=== PATIENT | male | born 1950 | race Caucasian/White ===

== ENCOUNTER 2019-04-04 00:13 | Day surgery (SDC) | payer MEDICARE, SELFPAY ==
[2019-03-26 09:29] VITALS: BMI 34.8
[2019-04-04] VITALS (9 sets, daily range): BP systolic 109–148; BP diastolic 63–78; PULSE 64–73; RESP 11–18; TEMP 36.3–36.4; O2SAT 92–96
--- NOTE | 2019-04-04 08:45 | WPDHPUPDATE1 ---
History and Physical Update Update Date/Time: 04/04/19 08:45 History and Physical has been reviewed, including an updated exam of the patient. There are NO changes in the patient's condition. Risks, benefits, and alternatives have been discussed and questions answered. Patient agrees to proceed with procedure.
[2019-04-04] MEDS: LACTATED RINGERS 1,000 ML 30 ML IV CONT ×2 (09:15→13:04)
[2019-04-04 09:27] LABS: Glucose Point of Care 127 (65-105)
--- NOTE | 2019-04-04 09:27 | WPDANESEPPF ---
Anes - Initial Pre Proc Eval Procedure: Operation Date: 04/04/19 10:30 Proposed Procedures p Left Arthroscopic Rotator Cuff Repair, Subacromial Decompression, Possible Biceps Tenodesis Arthroscopic vs Open(Left) - Fan Freeman MD Date/Time: 04/04/19 09:27 Surgeon: Fan Freeman MD Pre Op Diagnosis: Left Shoulder Rotator Cuff Tear Patient Data Age: 68 Gender: M Height: 5 ft 11 in Weight: 113.4 kg Last Vital Signs Temp 36.4 C L 04/04/19 08:30 Pulse 64 04/04/19 08:30 Resp 18 04/04/19 08:30 BP 135/67 04/04/19 08:30 Pulse Ox 96 04/04/19 08:30 Allergies Allergy/AdvReac Type Severity Reaction Status Date / Time poison yang extract Allergy Unknown Itching Verified 03/26/19 09:18 Ayjhihw-Hhj-Shs Reductase Allergy Unknown muscle Verified 03/26/19 09:18 Inhibitor aches Home Medications Medication Instructions Recorded Confirmed Type aspirin 81 mg tablet,delayed 81 mg PO DAILY 12/16/18 03/27/19 History release ezetimibe 10 mg tablet 10 mg PO DAILY 12/16/18 03/27/19 History hydrochlorothiazide 25 mg tablet 25 mg PO DAILY 12/16/18 03/27/19 History magnesium oxide 400 mg PO DAILY 12/16/18 03/27/19 History metformin 1,000 mg tablet 1,000 mg PO BID 12/16/18 03/27/19 History multivitamin 1 tablet PO DAILY 12/16/18 03/27/19 History pramipexole 0.25 mg tablet 0.25 mg PO HS 12/16/18 03/27/19 History carvedilol 25 mg tablet 25 mg PO Q12H #180 tablet 12/25/18 03/27/19 Rx losartan 50 mg tablet 100 mg PO DAILY #180 tablet 02/24/19 03/27/19 Rx gabapentin 600 mg tablet 600 mg PO TID #90 tablet 03/17/19 03/27/19 Rx clonazepam 1 mg PO HS 03/26/19 03/27/19 History adqipfas-holgn-qbgwq-CF borate 1 tablet PO BID 03/26/19 03/27/19 History [Move Free Joint Health] ibuprofen 600 mg PO TID PRN 03/26/19 03/27/19 History inulin [Fiber Gummies] 2 g PO DAILY 03/26/19 03/27/19 History omega 5-fky-owb-fish oil [Fish Oil] 1 cap PO QID 03/26/19 03/27/19 History trazodone 200 mg PO HS 03/26/19 03/27/19 History Laboratory Tests 04/04/19 09:19 POC Capillary Glucose 127 mg/dl H mg/dl (65-105) Patient hx anesthesia problems: none Family hx anesthesia problems: none PMFSH Past Medical History Medical History Degenerative tear of glenoid labrum of left shoulder Elevated glucose Hyperlipidemia Hypertension Partial tear of left rotator cuff PTSD (post-traumatic stress disorder) Surgical History Surgical History History of hernia surgery History of left knee surgery History of throat surgery Family History Family History Mother Hypertension Family history of malignant neoplasm Family history of malignant neoplasm of breast in first degree relative Father Family history of heart disease in male family member before age 55 Family history of cardiovascular disease Social History Social History Smoking status: Never smoker Second hand tobacco smoke exposure: No Alcohol intake: never Gender identity (if verbalized by the patient): Male Anes - Eval Final PreProcedure Day of Procedure 04/04/19 09:27 Patient weight: obese Heart: regular rate and rhythm Lungs: clear to auscultation Airway: Mallampati scale class II Neurological: alert and oriented Last oral intake: >/= 8 hours ASA classification: III Emergent: no Anesthetic plan: proceed Anesthesia type and monitoring: general LMA and standard monitoring Informed Consent: The patient's anesthetic plan and its attendant risks and benefits were discussed with the patient/family/POA. Questions were solicited and answers provided to the satisfaction of the patient/family/POA.
--- NOTE | 2019-04-04 09:46 | SUR.PREOP ---
Pt signed refusal for removal of wedding band, left hand He understands the risks and aware we can cut if off; Pt refused
--- NOTE | 2019-04-04 10:07 | WPDANESPNB ---
Anes - Peripheral Nerve Block Date/Time: 04/04/19 10:07 I have discussed with the patient/family/POA the placement of a peripheral nerve block for post-operative pain management, including associated risks, benefits, complications, and side effects. Alternative methods of post-operative analgesia were detailed. Questions were solicited and answers provided to the satisfaction of the patient/family/POA. Time-Out: A pre-procedural Time-Out was completed immediately before starting the procedure and confirmed: Patient Identification, Site, Procedure, Patient Position and the Availability of Requisite Equipment. Clinical Indications: Acute post-operative pain management requested by the operative surgeon. Nerve Block Insertion Note Anes-nerve block: interscalene left Patient position: supine Skin prep: chlorhexidine Needle: 22 gauge, stimulating, insulated echogenic needle. Needle length: 50 mm Technique: ultrasound Injectate: bupivacaine 0.5% with epi 5 mcg/ml (30 cc) and dexamethasone (mg) (8 mg) Observations: tolerated well Complications: none Procedure start time:: 954 Procedure end time:: 1001
[2019-04-04] MEDS: ceFAZolin 2 GM/D5W 50 ML 2 GM/50 ML BAG IVPB (10:33)
[2019-04-04 13:15] LABS: Glucose Point of Care 136 (65-105)
--- NOTE | 2019-04-04 17:10 | P.OP_ITS ---
Procedure Note - Detailed Date of procedure: 04/04/19 Pre-op diagnosis: Left Shoulder Rotator Cuff Tear Post-op diagnosis: other (1. Rotator cuff tear. 2. Degenerative SLAP tear 3. Biceps tendinosis) Procedure performed: 1. Arthrosocopic rotator cuff repair. 2. Arthroscopic biceps tenodesis. 3. Arthroscopic subacromial decompression. Description of procedure: High-grade partial articular side tear. The tear was completed to a medium-size tear. Two tunnel technique was used with the ArthroTunneler. A 3rd tunnel was used to tenodese the biceps tendon which had some tendinopathy, as well as slap tear and posterior labral tear which was debrided. Minimal degenerative changes at the articular cartilage. Anesthesia: GETA Surgeon: Fan Freeman MD Estimated blood loss (mL): 50 Complications: None Disposition: PACU Findings: Operative detail: Preoperative antibiotics were given. An interscalene block was administered in the preoperative area. The patient was bought brought to the operating room. A general anesthetic was administered. The patient was carefully positioned in the beach chair position. The head and neck were carefully positioned. The non operative extremity was also carefully positioned. The shoulder was prepped and draped in the usual sterile fashion. Examination was performed. No significant stiffness or abnormal findings were identified. Standard posterior and anterior arthroscopic portals were established. Inflow achieved with the arthroscopic pump using saline and epinephrine. The glenohumeral joint was carefully inspected. The articular supraspinatus was significantly frayed with high- grade partial-thickness tearing greater than 50%. This was debrided. The subscapularis was intact. The articular cartilage showed only minimal degenerative change. The posterior labrum was debrided as it was quite degenerative. There was a slap tear which was also debrided and a biceps tenotomy performed. The biceps was later tenodesed at the subacromial space. It was found to have moderate hyperemia and tendinosis. Attention was turned to the subacromial space. A complete bursectomy was performed. The rotator cuff and footprint were lightly debrided. A modest acromioplasty was performed. The tear configuration was carefully assessed. The tear was essentially crescentic after debridement. No significant retraction. At this point, 2 tunnels were created at the rotator cuff. One anterior and 1 posterior. The ArthroTunneler technique was utilized. Three sutures were passed through each tunnel. All sutures were then passed through the cuff tissue. The rip stop configuration was performed. The sutures were tied arthroscopically. The biceps tenodesis was performed through a 3rd tunnel. Two sutures were passed multiple times, and locking stitches used. The proximal stump of the biceps was excised. The arthroscopic instruments were removed. The wounds were closed with 3-0 Monocryl subcuticular suture and steri strips. There were no complications. A sling was applied and the patient brought to the recovery room.
== END 2019-04-04 15:33 | disposition home or self-care (01) ==
PROVIDERS: PCP Internal Medicine; Visit Provider Orthopaedic Surgery
PROC: (CPT 29805; principal; 2019-04-04 10:30)
DX: M75.102 Unspecified rotator cuff tear or rupture of left shoulder, not specified as traumatic (principal); M75.82 Other shoulder lesions, left shoulder; M75.22 Bicipital tendinitis, left shoulder; I10 Essential (primary) hypertension; E78.5 Hyperlipidemia, unspecified; R73.9 Hyperglycemia, unspecified; F43.10 Post-traumatic stress disorder, unspecified; Z79.82 Long term (current) use of aspirin; Z79.84 Long term (current) use of oral hypoglycemic drugs; E66.9 Obesity, unspecified; Z68.34 Body mass index [BMI] 34.0-34.9, adult
CPT/HCPCS: 29827; 29828; 29826; A4565; J0131; J0330; J0690; J1100; J2250; J2370; J2405; J2704; J3010; J7120

== ENCOUNTER 2019-04-08 22:21 | Emergency (ER) | payer MEDICARE, OTHER, SELFPAY ==
--- NOTE | ~2019-04-08 | XR_ITS ---
EXAMINATION: XR foot RT min 3V DATE: 04/08/2019 23:01 INDICATION: Pain at the base of the fifth metatarsal TECHNIQUE: Dorsoplantar, two oblique and lateral views of the right foot were obtained. COMPARISON: None. FINDINGS: Alignment is normal. No fracture. Joint spaces are relatively preserved. No cortical erosions or elier osteal reaction. Small plantar calcaneal spur. Soft tissues are unremarkable. IMPRESSION: 1. Small plantar calcaneal spur. Otherwise unremarkable right foot radiographs. Reviewed, dictated and finalized at location A. [facility] JOINER
[2019-04-08 22:30] VITALS: BP 128/63; PULSE 68; RESP 18; TEMP 36.6; O2SAT 95
--- NOTE | 2019-04-08 22:47 | ED.LOWEXIN ---
HPI - Extremity Injury (Lower) General Chief Complaint: Extremity Injury, Lower Stated Complaint: R FOOT PAIN Time Seen by Provider: 04/08/19 22:43 Source: patient and RN notes reviewed Mode of arrival: other Limitations: no limitations History of Present Illness HPI Narrative: Pt is a 68 y/o male who presents to the ED with c/o right foot pain that began this morning. Pt's spouse states the pt has been sitting in the recliner since his left rotator cuff surgery. Pt has been taking Oxycodone-Acetaminophen for his shoulder surgery. He states that the medication does not relieve the pain in his foot. Pt denies numbness and tingling. complaint: other (foot pain) Onset (ago): hour(s) Relieving factors: nothing Associated symptoms: other (none) Other symptoms: none Related Data Home Medications Medication Instructions Recorded Confirmed aspirin 81 mg tablet,delayed 81 mg PO DAILY 12/16/18 03/27/19 release ezetimibe 10 mg tablet 10 mg PO DAILY 12/16/18 03/27/19 hydrochlorothiazide 25 mg tablet 25 mg PO DAILY 12/16/18 03/27/19 magnesium oxide 400 mg PO DAILY 12/16/18 03/27/19 metformin 1,000 mg tablet 1,000 mg PO BID 12/16/18 03/27/19 multivitamin 1 tablet PO DAILY 12/16/18 03/27/19 pramipexole 0.25 mg tablet 0.25 mg PO HS 12/16/18 03/27/19 Fiber Gummies 2 g PO DAILY 03/26/19 03/27/19 Move Free Joint Health 1 tablet PO BID 03/26/19 03/27/19 clonazepam 1 mg PO HS 03/26/19 03/27/19 ibuprofen 600 mg PO TID PRN 03/26/19 03/27/19 omega 4-gpi-maw-fish oil [Fish Oil] 1 cap PO QID 03/26/19 03/27/19 trazodone 200 mg PO HS 03/26/19 03/27/19 Allergies Allergy/AdvReac Type Severity Reaction Status Date / Time poison yang extract Allergy Unknown Itching Verified 04/08/19 23:07 Rnmmkrd-Oak-Pyh Reductase AdvReac Unknown muscle Verified 04/08/19 23:07 Inhibitor aches Review of Systems Review of Systems: All systems reviewed & are unremarkable except as noted in HPI and below Musculoskeletal: Musculoskeletal: Reports other (right foot pain) Neurologic: Denies numbness and Denies tingling PMFSH Past Medical History Medical History (Updated 04/09/19 @ 00:50 by Solo Jiménez MD) Anxiety Degenerative tear of glenoid labrum of left shoulder Depression DVT (deep venous thrombosis) Elevated glucose GERD (gastroesophageal reflux disease) History of angina Hyperlipidemia Hypertension On detention drug therapy VANDANA on CPAP Partial tear of left rotator cuff Pneumonia PTSD (post-traumatic stress disorder) Type 2 diabetes mellitus without complication, with detention current use of insulin pump Surgical History Surgical History (Updated 04/08/19 @ 23:06 by Briana Ross) History of hernia surgery History of left knee surgery History of shoulder surgery left rotator cuff repair History of throat surgery Hx of tonsillectomy S/P UPPP (uvulopalatopharyngoplasty) Social History Social History Smoking status: Never smoker Second hand tobacco smoke exposure: No Alcohol intake: never Gender identity (if verbalized by the patient): Male Exam Const: General: healthy appearing, no acute distress and well developed Nutritional Appearance: well nourished Orientation/consciousness: patient oriented x3 (alert) and Other orientation findings (Alert) Limitations: no limitations HENMT: Head: normocephalic and atraumatic Ears: external ears normal General nose exam: No nasal discharge present and no epistaxis Face and sinus: face symmetric Mouth: Yes lip normal, Yes tongue normal and Yes moist mucous membranes Throat: other (No exudate, no erythema) Eyes: Conjunctivae: conjunctivae normal Sclera: sclerae normal EOM: EOMs intact bilaterally Neck: Neck: full ROM, no lymphadenopathy and supple Thyroid: thyroid normal Resp: Effort & Inspection: normal respiratory effort Cardio: Peripheral pulses: dorsalis pedis present on the right 2+ Skin: General skin exam: nor
[2019-04-08 23:26] LABS: Uric Acid 5.7 mg/dL (3.5-8.5)
[2019-04-09 01:09] VITALS: BP 138/78; PULSE 70; RESP 16; O2SAT 96
== END 2019-04-09 01:14 | disposition home or self-care (01) ==
PROVIDERS: Emergency Provider Emergency Medicine; PCP Internal Medicine
DX: M77.51 Other enthesopathy of right foot and ankle (principal); E11.9 Type 2 diabetes mellitus without complications; I10 Essential (primary) hypertension; F32.9 Major depressive disorder, single episode, unspecified; F41.9 Anxiety disorder, unspecified; Z79.82 Long term (current) use of aspirin; Z86.718 Personal history of other venous thrombosis and embolism; Z79.84 Long term (current) use of oral hypoglycemic drugs
CPT/HCPCS: 36415; 73630; 84550; 99283

== ENCOUNTER 2020-03-10 10:58 | Outpatient (CLI) | payer MEDICARE, SELFPAY ==
--- NOTE | ~2020-03-10 | XR_ITS ---
EXAMINATION: XR chest 2V DATE: 03/10/2020 11:16 INDICATION: Generalized hyperhidrosis TECHNIQUE: PA and lateral views of the chest were obtained. COMPARISON: Chest radiograph and CT dated 11/24/2018 FINDINGS: Heart size is normal with small bilateral paracardial fat pads. Unchanged minimal lingular discoid at electasis/scarring at the costophrenic angle. No new airspace opacities, pulmonary edema, pleural eff usion or pneumothorax. There are bridging osteophytes at multiple levels in the spine, consistent wit h diffuse idiopathic skeletal hyperostosis (DISH). IMPRESSION: 1. Chronic mild lingular atelectasis/scarring. No acute cardiopulmonary disease. Reviewed, dictated and finalized at location B. [place] [employer] SAL[employer] REPRESENTATIVE IMPRESSION: 1. Chronic mild lingular atelectasis/scarring. No acute cardiopulmonary disease .
== END 2020-03-10 10:59 | disposition home or self-care (01) ==
PROVIDERS: PCP Internal Medicine; Visit Provider Internal Medicine
DX: R61 Generalized hyperhidrosis (principal)
CPT/HCPCS: 71046

== ENCOUNTER 2020-12-14 08:13 | Outpatient (CLI) | payer MEDICARE, SELFPAY ==
--- NOTE | ~2020-12-14 | XR_ITS ---
EXAMINATION: XR barium swallow EXAM DATE: 12/14/2020 09:04 INDICATION: R13.10 -Dysphagia, solid food getting stuck episodes. TECHNIQUE: Standard thick followed by thin contrast barium esophagram examination was performed by Dr Nova Cuellar, radiologist. Pulsed dose reduction fluoroscopy was used with fluoroscopic time of 0.9 minutes. The DAP for this procedure was 2.4 Gycm2. A total of 159 images obtained for the exam. T here is no prior study for comparison. FINDINGS: When patient was placed in the laying CAMPBELL position, very thin weblike density was present a t mid cervical esophagus anteriorly (sequence 10 images 7 and 8). This appears to project about 4 mm into the lumen of the esophagus at time of maximal distention, causing only mild narrowing. A small g astroesophageal hiatal hernia was also demonstrated in this laying position. These findings were not demonstrated on the other sequences obtained in the standing position. No esophageal diverticulum or mass identified. I discussed the small hiatal hernia with the patient at the conclusion of examination. I identified t he upper cervical findings after the examination during this dictation. I did instruct patient that t aking small bites may prevent future problems of solid food getting stuck. IMPRESSION: 1. Thin mid cervical anterior bandlike narrowing could be small upper cervical web causing mild narr owing. 2. Small sliding gastroesophageal hiatal hernia. Reviewed, dictated and finalized at location A. IMPRESSION: 1. Thin mid cervical anterior bandlike narrowing could be small upper cervical web causing mild narrowing. 2. Small sliding gastroesophageal hiatal hernia.
== END 2020-12-14 08:14 | disposition home or self-care (01) ==
LOC: ANHIMG 08:17
PROVIDERS: PCP Internal Medicine; Visit Provider Internal Medicine
DX: R13.10 Dysphagia, unspecified (principal); K44.9 Diaphragmatic hernia without obstruction or gangrene
CPT/HCPCS: 74220

== ENCOUNTER 2021-02-23 00:54 | Day surgery (SDC) | payer MEDICARE, SELFPAY ==
[2021-02-16 12:50] VITALS: BMI 34.2
--- NOTE | 2021-02-21 12:04 | PM.HPGS ---
History of Present Illness History of Present Illness Consent: Risks, benefits, and alternatives have been discussed and questions answered. Patient agrees to proceed with procedure. Chief complaint: dysphagia Narrative: Declan Martinez is a 70 year old male who has had difficulty swallowing for about 2 years. Every couple of months he will have food or even liquids get caught just below his throat. He will need to leave the table and sometimes hack it back up. If something like a solid piece of food feels stuck drinking does not help as the liquid simply sits there or shoots back out. He occasionally gets acid reflux with bitter regurgitation. This is not just at night and in fact it rarely happens at night. He seldom has true heartburn and is not on any medications for that. There is no family history of esophageal diseases such as Rooney's esophagus recent upper GI barium swallow shows a thin mid cervical anterior bandlike narrowing which may be a cervical web causing mild narrowing. He states that sometimes even while drinking a glass of milk he will feel it stop Just below his neck. Review of Systems Review of Systems: All systems reviewed & are unremarkable except as noted in HPI and below PMFSH Past Medical History Medical History Actinic keratosis Anxiety Anxiety with depression Benign essential hypertension BMI 33.0-33.9,adult BMI 34.0-34.9,adult BMI 35.0-35.9,adult Degenerative tear of glenoid labrum of left shoulder Depression DJD (degenerative joint disease), multiple sites DVT (deep venous thrombosis) Dysphagia Elevated glucose Encounter for Medicare annual wellness exam Encounter for routine adult health examination with abnormal findings Encounter for routine adult health examination without abnormal findings Encounter for special screening examination for neoplasm of prostate Esophagus disorder Folliculitis Follow up GERD (gastroesophageal reflux disease) Hearing loss History of angina Hx of deep venous thrombosis Hypomagnesemia Hypotension Insomnia Light headedness Night sweats On lobsterman drug therapy Orthostatic hypotension VANDANA on CPAP VANDANA on CPAP Partial tear of left rotator cuff Peripheral neuropathy Pneumonia PTSD (post-traumatic stress disorder) RLS (restless legs syndrome) Statin intolerance Vision changes Surgical History Surgical History History of hernia surgery History of left knee surgery History of shoulder surgery left rotator cuff repair History of throat surgery Hx of tonsillectomy S/P UPPP (uvulopalatopharyngoplasty) Family History Family History Mother Hypertension Family history of malignant neoplasm Family history of malignant neoplasm of breast in first degree relative Father Family history of heart disease in male family member before age 55 Family history of cardiovascular disease Social History Social History Smoking status: Never smoker Second hand tobacco smoke exposure: No Alcohol intake: never Substance use: never Substance use type: does not use Living arrangements: with family Gender identity (if verbalized by the patient): Male Spiritual care concerns: No Meds Home Medications and Allergies Home Medications Medication Instructions Recorded Confirmed Type aspirin 81 mg tablet,delayed 81 mg PO DAILY 12/16/18 02/23/21 History release magnesium oxide 400 mg PO DAILY 12/16/18 02/23/21 History multivitamin 1 tablet PO DAILY 12/16/18 02/23/21 History Fiber Gummies 2 g PO DAILY 03/26/19 02/23/21 History Move Free Joint Health 1 tablet PO BID 03/26/19 02/23/21 History omega 4-ifa-uzp-fish oil [Fish Oil] 1 cap PO QID 03/26/19 02/23/21 History ibuprofen 600 mg tablet See Rx Instructions .ROUTE 11/15/20 02/23/21 Rx .COM
[2021-02-23 07:27] VITALS: BP 159/90; PULSE 64; RESP 18; TEMP 36.1; O2SAT 95
[2021-02-23] MEDS: LACTATED RINGERS 1,000 ML 150 ML IV CONT (07:43)
[2021-02-23 07:44] LABS: Glucose Point of Care 114 mg/dl (65-105)
--- NOTE | 2021-02-23 07:48 | WPDANESEPPF ---
Anes - Initial Pre Proc Eval Procedure: Operation Date: 02/23/21 08:30 Proposed Procedures p Esophagogastroduodenoscopy - Jaron Abdullahi MD Date/Time: 02/23/21 07:48 Surgeon: Jaron Abdullahi MD Pre Op Diagnosis: dysphagia Patient Data Age: 70 Gender: M Height: 1.8 m Weight: 109.1 kg Last Vital Signs Temp 36.1 C L 02/23/21 07:27 Pulse 64 02/23/21 07:27 Resp 18 02/23/21 07:27 BP 159/90 H 02/23/21 07:27 Pulse Ox 95 02/23/21 07:27 Allergies Allergy/AdvReac Type Severity Reaction Status Date / Time poison yang extract Allergy Unknown Itching Verified 02/23/21 07:26 Jjuzocv-CSL-RiL Reductase AdvReac Unknown muscle Verified 02/23/21 07:26 Inhibitor aches [Ibhdjdw-Vsb-Bgi Reductase Inhibitor] Home Medications Medication Instructions Recorded Confirmed Type aspirin 81 mg tablet,delayed 81 mg PO DAILY 12/16/18 02/23/21 History release magnesium oxide 400 mg PO DAILY 12/16/18 02/23/21 History multivitamin 1 tablet PO DAILY 12/16/18 02/23/21 History Fiber Gummies 2 g PO DAILY 03/26/19 02/23/21 History Move Free Joint Health 1 tablet PO BID 03/26/19 02/23/21 History omega 6-cum-gzo-fish oil [Fish Oil] 1 cap PO QID 03/26/19 02/23/21 History ibuprofen 600 mg tablet See Rx Instructions .ROUTE 11/15/20 02/23/21 Rx .COMPLEX #270 tablet carvedilol 25 mg tablet See Rx Instructions .ROUTE 12/02/20 02/23/21 Rx .COMPLEX #180 tablet ezetimibe 10 mg tablet See Rx Instructions .ROUTE 01/03/21 02/23/21 Rx .COMPLEX #90 tablet trazodone 100 mg tablet See Rx Instructions .ROUTE 01/10/21 02/23/21 Rx .COMPLEX #180 tablet metformin 1,000 mg tablet See Rx Instructions .ROUTE 01/27/21 02/23/21 Rx .COMPLEX #180 tablet gabapentin 600 mg tablet See Rx Instructions .ROUTE 02/01/21 02/23/21 Rx .COMPLEX #150 tablet clonazepam 1 mg tablet 1 mg PO QHS 90 Days #90 tablet 02/09/21 02/23/21 Rx losartan 100 mg PO DAILY 02/16/21 02/23/21 History Laboratory Tests 02/23/21 07:39 POC Capillary Glucose 114 mg/dl H mg/dl (65-105) Patient hx anesthesia problems: none Family hx anesthesia problems: none Results Review: All pre-operative results and documents have been reviewed as part of the pre-operative evaluation. [facility] Past Medical History Medical History Actinic keratosis Anxiety Anxiety with depression Benign essential hypertension BMI 33.0-33.9,adult BMI 34.0-34.9,adult BMI 35.0-35.9,adult Degenerative tear of glenoid labrum of left shoulder Depression DJD (degenerative joint disease), multiple sites DVT (deep venous thrombosis) Dysphagia Elevated glucose Encounter for Medicare annual wellness exam Encounter for routine adult health examination with abnormal findings Encounter for routine adult health examination without abnormal findings Encounter for special screening examination for neoplasm of prostate Esophagus disorder Folliculitis Follow up GERD (gastroesophageal reflux disease) Hearing loss History of angina Hx of deep venous thrombosis Hypomagnesemia Hypotension Insomnia Light headedness Night sweats On alf drug therapy Orthostatic hypotension VANDANA on CPAP VANDANA on CPAP Partial tear of left rotator cuff Peripheral neuropathy Pneumonia PTSD (post-traumatic stress disorder) RLS (restless legs syndrome) Statin intolerance Vision changes Surgical History Surgical History History of hernia surgery History of left knee surgery History of shoulder surgery left rotator cuff repair History of throat surgery Hx of tonsillectomy S/P UPPP (uvulopalatopharyngoplasty) Family History Family History Mother Hypertension Family history of malignant neoplasm Family history of malignant neoplasm of breast in first degree relative Father Family history of heart disease in male family member
[2021-02-23 08:33] VITALS: BP 131/73; PULSE 55; RESP 15; O2SAT 93
[2021-02-23 08:43] VITALS: BP 131/73; PULSE 56; RESP 16; O2SAT 95
[2021-02-23 08:53] VITALS: BP 150/91; PULSE 57; RESP 16; O2SAT 96
== END 2021-02-23 09:09 | disposition home or self-care (01) ==
PROVIDERS: PCP Internal Medicine; Visit Provider Internal Medicine Gastroenterology
PROC: 0DJ08ZZ Inspection of Upper Intestinal Tract, Via Natural or Artificial Opening Endoscopic (ICD-10-PCS; CPT 43235; principal; 2021-02-23 08:30)
DX: R13.10 Dysphagia, unspecified (principal); K29.50 Unspecified chronic gastritis without bleeding; K21.9 Gastro-esophageal reflux disease without esophagitis; I10 Essential (primary) hypertension; F41.8 Other specified anxiety disorders; G47.33 Obstructive sleep apnea (adult) (pediatric); G25.81 Restless legs syndrome; F43.10 Post-traumatic stress disorder, unspecified; Z86.718 Personal history of other venous thrombosis and embolism; Z79.84 Long term (current) use of oral hypoglycemic drugs; Z79.82 Long term (current) use of aspirin; E66.9 Obesity, unspecified; Z68.33 Body mass index [BMI] 33.0-33.9, adult
CPT/HCPCS: 43239; 43450; 82948; 87081; 88305; J2704; J7120

== ENCOUNTER → 2021-04-27 14:14 | Outpatient (CLI) | payer MEDICARE, SELFPAY ==
--- NOTE | ~2021-04-27 | XR_ITS ---
XR abdomen/kub 1V 04/27/2021 14:37 INDICATION: Right-sided abdominal pain TECHNIQUE: KUB COMPARISON: None FINDINGS: Bowel gas pattern is normal. There is no evidence of free air, mass, organomegaly, ascites or obstruction. No abnormal calculi are seen. The bones appear intact. IMPRESSION: 1: No acute abdominal abnormality identified. Reviewed, dictated and finalized at location B.
== END ==
PROVIDERS: PCP Internal Medicine; Visit Provider Internal Medicine
DX: R10.84 Generalized abdominal pain (principal)
CPT/HCPCS: 74018

== ENCOUNTER 2021-04-27 16:22 | Outpatient (CLI) | payer MEDICARE, SELFPAY ==
--- NOTE | ~2021-04-27 | CT_ITS ---
EXAMINATION: CT abdomen pelvis w con DATE: 04/27/2021 17:14 INDICATION: Unspecified abdominal pain TECHNIQUE: Computed tomography (CT) of the abdomen and pelvis was performed with 100 CC Omnipaque 350 intravenous contrast. Automated exposure control and iterative reconstruction technique were employe d. Exam dose: 1200.83 mGy-cm total exam DLP. COMPARISON: 04/27/2021 KUB FINDINGS: Minimal bilateral lower lobe dependent atelectasis. No consolidation or mass lesion of the included lower lung zones. Normal heart size. No pericardial or pleural effusion. There is hepatic steatosis. Scattered hepatic and splenic calcified granulomas consistent with old gr anulomatous disease. No hepatic, splenic, pancreatic or adrenal space-occupying mass lesion. No pancr eatic calcification. The gallbladder is present. No bile duct or pancreatic duct dilatation. 9 mm and 23 mm left renal probable cysts, the larger cyst diminished in size from 4 cm reported on . No urinary tract calculus or hydroureteronephrosis. The urinary bladder and prostate gland are unrema rkable. There are multiple diverticula of the sigmoid colon and minimal diverticulosis of the remainder of th e colon. Compared to the prior examination there is mild proximal sigmoid pericolic fat stranding sug gesting mild proximal sigmoid diverticulitis. Normal caliber and atherosclerotic calcification of the abdominal aorta. No intraperitoneal or retrop eritoneal or pelvic mass lesion or adenopathy or ascites. Bilateral small fat-containing inguinal hernias, larger on the right. Diffuse idiopathic skeletal hyperostosis of the thoracic spine. Moderately prominent degenerative dis c disease of the lumbar and lumbosacral spine. Prominent degenerative change of the lumbar apophyseal joints. No suspicious osteolytic or osteoblastic lesions are noted. IMPRESSION: Mild proximal sigmoid diverticulitis Diverticulosis of the sigmoid colon with minimal involvement of the remainder of the colon Normal appendix Left renal cysts Hepatic steatosis Reviewed, dictated and finalized at [facility]. Reviewed, dictated and finalized at location [facility]. IMPRESSION: Mild proximal sigmoid diverticulitis Diverticulosis of the sigmoid colon with minimal involvement of the remainder o f the colon Normal appendix Left renal cysts Hepatic steatosis
[2021-04-27 17:03] LABS: Estimated Glomerular Filt Rate > 60
== END 2021-04-27 16:23 | disposition home or self-care (01) ==
LOC: ANHIMG 16:25
PROVIDERS: PCP Internal Medicine; Visit Provider Internal Medicine
DX: R10.9 Unspecified abdominal pain (principal); Z87.19 Personal history of other diseases of the digestive system; K57.92 Diverticulitis of intestine, part unspecified, without perforation or abscess without bleeding; N28.1 Cyst of kidney, acquired; K76.0 Fatty (change of) liver, not elsewhere classified
CPT/HCPCS: 74177; Q9967

== ENCOUNTER 2021-05-16 10:16 | Outpatient (CLI) | payer MEDICARE, SELFPAY ==
--- NOTE | ~2021-05-16 | CT_ITS ---
EXAMINATION: CT abdomen pelvis w con DATE: 05/16/2021 10:40 INDICATION: Diverticulitis of intestine, part unspecified. Low abdominal pain. TECHNIQUE: Computed tomography (CT) of the abdomen and pelvis was performed with 100 mL Omnipaque 350 intravenous contrast. Automated exposure control and iterative reconstruction technique were employe d. The dose-length product was 1261.60 mGy-cm. COMPARISON: CT abdomen and pelvis 04/27/2021 FINDINGS: The visualized portions of the lung bases show mild atelectasis. No pleural effusion. The h eart size is normal. No pericardial effusion. Calcifications in the liver and spleen are consistent w ith old granulomatous disease. There is fat stranding around the tail of the pancreas, consistent wit h acute interstitial pancreatitis. The adrenal glands and right kidney are normal. There are cysts in left kidney measuring up to 2.1 cm. There is a right inguinal hernia containing fat. There is divert iculosis of the colon without evidence of diverticulitis. The appendix is normal. There are no dilate d loops of bowel. There are no pathologically enlarged lymph nodes. There is no free intraperitoneal fluid. There is moderate lumbar spondylosis. IMPRESSION: 1. Acute interstitial pancreatitis. 2. No evidence of diverticulitis. Reviewed, dictated and finalized at location A.
== END 2021-05-16 10:17 | disposition home or self-care (01) ==
PROVIDERS: PCP Internal Medicine; Visit Provider Internal Medicine
DX: K57.92 Diverticulitis of intestine, part unspecified, without perforation or abscess without bleeding (principal); K85.90 Acute pancreatitis without necrosis or infection, unspecified
CPT/HCPCS: 74177; Q9967

== ENCOUNTER 2021-05-16 11:05 | Inpatient (IN) | payer MEDICARE, SELFPAY ==
[2021-05-16] VITALS (8 sets, daily range): BP systolic 142–158; BP diastolic 74–92; PULSE 64–74; RESP 14–20; TEMP 36.2–36.9; O2SAT 94–100; BMI 32.8
--- NOTE | ~2021-05-16 | XR_ITS ---
EXAMINATION: XR lumbar spine 2-3V DATE: 05/20/2021 15:48 INDICATION: Left-sided low back pain TECHNIQUE: Anteroposterior and lateral views of the lumbar spine, and cone-down lateral view of the l umbosacral junction were obtained. COMPARISON: Lumbar spine radiograph dated 04/30/[address] dated 05/16/2021 FINDINGS: Unchanged mild lumbar levocurvature. Sagittal alignment is normal. Vertebral body heights are normal. Moderate left-sided predominant disc height loss at L3-L4. Mild disc height loss throughout the miguelina hussein of the lumbar spine. Moderate to severe lumbar facet osteoarthritis.Sacral arches are intact. M ild right and mild to moderate left sacroiliac osteoarthritis. Atherosclerotic abdominal aorta. Visua lized posterior lung bases are clear with no pleural effusion. IMPRESSION: 1. Moderate lumbar spondylosis. Reviewed, dictated and finalized at location B.
--- NOTE | ~2021-05-16 | XR_ITS ---
EXAMINATION: XR abdomen/kub 1V DATE: 05/18/2021 09:37 INDICATION: Left lower quadrant abdominal pain. TECHNIQUE: A supine view of the abdomen on 2 radiographs was obtained. COMPARISON: CT abdomen and pelvis 05/16/2021 FINDINGS: There are no dilated loops of bowel. There is a paucity of stool in the colon. IMPRESSION: 1. Normal bowel gas pattern. Reviewed, dictated and finalized at location A.
[2021-05-16 12:07] LABS: Basophils Absolute Auto 0.1 K/mm3 (0.0-0.1); Basophils Percent Auto 1.1 % (0.2-1.2); Eosinophils Absolute Auto 0.3 K/mm3 (0-0.3); Eosinophils Percent Auto 2.9 % (0-4.4); Hematocrit 50.6 % (42.0-52.0); Hemoglobin 16.2 g/dL (14.0-18.0); Immature Granulocyte Absolute 0.02 K/mm3 (0.00-0.031); Immature Granulocyte Percent A 0.2 % (0-0.5); Lymphocytes Absolute Auto 1.87 K/mm3 (0.9-3.2); Lymphocytes Percent Auto 20.8 % (18.3-44.2); Mean Corpuscular Hemoglobin 29.5 pg (26-34); Mean Platelet Volume 10.3 fl (7.4-10.4); Monocytes Absolute Auto 0.8 K/mm3 (0.1-0.6); Monocytes Percent Auto 8.6 % (2.6-8.5); Neutrophils Percent Auto 66.4 % (45.5-73.1); Platelet Count Result 332 k/mm3 (150-375); Red Cell Distribution Width 12.6 % (11.5-14.5)
[2021-05-16 12:18] LABS: Alanine Aminotransferase 34 U/L (4-50); Albumin Level 4.4 g/dL (3.5-5.1); Alkaline Phosphatase 90 U/L (38-126); Anion Gap 7 mmol/L (8-16); Aspartate Amino Transferase 42 U/L (17-59); Bilirubin,Total 0.3 mg/dL (0.2-1.3); Blood Urea Nitrogen 27 mg/dL (9-20); Calcium 9.5 mg/dL (8.4-10.2); Carbon Dioxide 29 mmol/L (22-30); Chloride 105 mmol/L (98-107); Estimated CRCL calculation 90 ml/min; Estimated Glomerular Filt Rate > 60; Glucose 113 mg/dL (65-110); Lipase 198 U/L (23-300); Potassium 4.5 mmol/L (3.4-5.0); Sodium 141 mmol/L (137-145)
--- NOTE | 2021-05-16 12:48 | ED.ABDPAIN ---
HPI - Abdominal Pain General Chief Complaint: Abdominal Pain Stated Complaint: pancreatitis Time Seen by Provider: 05/16/21 12:02 Source: patient Mode of arrival: ambulatory Limitations: no limitations History of Present Illness HPI narrative: This is a 71 year old male who presents for evaluation of lower abdominal pain. He has been having pain for 1 month. Approximately 3 weeks ago he was diagnosed with acute diverticulitis and he was started on antibiotics with pain medications. He states taking pain medication improved his pain but his pain has never completely resolved. He continued to have lower abdominal pain so his PCP ordered an outpatient CT scan today. His CT today shows pancreatitis with mild stranding at pancreatic tail. He denies nausea, vomiting, fever or chills. He also denies urinary complaints. He reports having normal bowel movement today. He rates pain 5/10. He denies alcohol use . Related Data Home Medications Medication Instructions Recorded Confirmed aspirin 81 mg tablet,delayed 81 mg PO DAILY 12/16/18 05/16/21 release magnesium oxide 400 mg PO DAILY 12/16/18 05/16/21 multivitamin 1 tablet PO DAILY 12/16/18 05/16/21 Fiber Gummies 2 g PO DAILY 03/26/19 05/16/21 Move Free [employer] 1 tablet PO BID 03/26/19 05/16/21 omega 4-phk-bjl-fish oil [Fish Oil] 1,200 cap PO TID 03/26/19 05/16/21 losartan 100 mg PO DAILY 02/16/21 05/16/21 carvedilol 25 mg PO BID 05/16/21 05/16/21 ezetimibe 10 mg PO DAILY 05/16/21 05/16/21 gabapentin 600 mg PO BID 05/16/21 05/16/21 ibuprofen 600 mg PO TID PRN MDD 1800 05/16/21 05/16/21 metformin 1,000 mg PO BID 05/16/21 05/16/21 trazodone 200 mg PO DAILY 05/16/21 05/16/21 Allergies Allergy/AdvReac Type Severity Reaction Status Date / Time poison yang extract Allergy Unknown Itching Verified 05/16/21 14:25 Geasvga-WRS-CuE Reductase AdvReac Unknown muscle Verified 05/16/21 14:25 Inhibitor aches [Cxpxkgf-Nml-Fng Reductase Inhibitor] Review of Systems Review of Systems: All systems reviewed & are unremarkable except as noted in HPI and below Constitutional: Constitutional: Reports chills and Denies fever(s) Cardiovascular: Cardiovascular: Denies chest pain Respiratory: Respiratory: Denies cough and Denies dyspnea Gastrointestinal: Gastrointestinal: Reports abdominal pain, Reports diarrhea, Denies nausea and Denies vomiting Genitourinary: Genitourinary: Denies hematuria and Denies oliguria Musculoskeletal: Musculoskeletal: Reports back pain [facility] Past Medical History Medical History Abdominal pain Actinic keratosis Anxiety Anxiety with depression Benign essential hypertension BMI 33.0-33.9,adult BMI 34.0-34.9,adult BMI 35.0-35.9,adult Degenerative tear of glenoid labrum of left shoulder Depression Diverticulitis DJD (degenerative joint disease), multiple sites DVT (deep venous thrombosis) Dysphagia Elevated glucose Encounter for Medicare annual wellness exam Encounter for routine adult health examination with abnormal findings Encounter for routine adult health examination without abnormal findings Encounter for special screening examination for neoplasm of prostate Esophagus disorder Folliculitis Follow up Foreskin inflammation GERD (gastroesophageal reflux disease) Hearing loss History of angina Hx of deep venous thrombosis Hypomagnesemia Hypotension Insomnia Light headedness Night sweats On penitentiary drug therapy Orthostatic hypotension VANDANA on CPAP VANDANA on CPAP Partial tear of left rotator cuff Peripheral neuropathy Pneumonia PTSD (post-traumatic stress disorder) RLS (restless legs syndrome) Statin intolerance Vision changes Vitamin D deficiency Surgical History Surgical History History of hernia surgery History of left knee surgery History of shoulder surgery left rotator cuff repair History of
[2021-05-16 13:34] LABS: Add Urine Microscopic? YES; Appearance Urine Clear (Clear); Bilirubin Urine Negative (Negative); Blood Urine Negative (Negative); Color Urine Yellow (Yellow); Glucose Urine UA Negative (Negative); Ketones Urine Negative (Negative); Leukocyte Esterase Ur Trace LEU/UL (Negative); Mucus Urine Rare /lpf; Nitrate Urine Negative (Negative); Protein Urine Negative (Negative); RBC Urine 0-2 /hpf (0-2); Squamous Epithelial Cell Urine Rare /hpf (Few); Urobilinogen Urine Negative mg/dL (<2.0); WBC Urine 0-3 /hpf
[2021-05-16 13:53] LABS: Specific Grav Ur > 1.060 (1.001-1.035)
--- NOTE | 2021-05-16 15:16 | PC.NURSE ---
1517-CALLED TO FLOOR. STATES DID NOT RECEIVE SBAR FOR 312. CONFIRMED FAX NUMBER OF [id number].
--- NOTE | 2021-05-16 15:33 | PC.NURSE ---
1533-FLOOR CONFIRMS RECEIPT OF REPORTS. WILL HAVE NURSE CALL BACK FOR REPORT.
--- NOTE | 2021-05-16 15:47 | PC.NURSE ---
1543-REPORT TO BREANNA CLAIRE.
[2021-05-16] MEDS: LACTATED RINGERS 1,000 ML 125 ML IV CONT (17:41)
--- NOTE | 2021-05-16 18:30 | PM.IMHP ---
H&P: HPI History of Present Illness Date/Time: 05/16/21 18:30 Chief Complaint: Abdominal pain. Narrative: This is a pleasant 71-year-old male with hypertension, dyslipidemia, and type 2 diabetes mellitus who presented to the emergency department for evaluation of abdominal pain. Nearly 4 weeks ago he developed diffuse lower abdominal discomfort and a CT of the abdomen and pelvis on 04/27/2021 showed mild proximal sigmoid diverticulitis for which he was prescribed ciprofloxacin and metronidazole. He completed the course of antibiotics and was feeling a bit better however the pain never completely resolved. In fact, the pain has gotten worse the last couple of days and while he still has diffuse lower abdominal discomfort he also has a pretty constant, aching pain in the left middle quadrant which radiates through to the back. He had night sweats and chills over the weekend but no documented fever. His appetite has been poor though he denies nausea and vomiting. He has several loose stools a day but that has been ongoing for years and is unchanged. After speaking with his doctor today, a repeat CT scan was ordered and showed acute interstitial pancreatitis with no evidence of diverticulitis. He has no personal or family history of pancreatitis. He has dyslipidemia but he has never been told he had significantly elevated triglycerides. He denies significant alcohol consumption. At the time my evaluation he still is not feeling very well with continued discomfort. He has also felt fatigued and has had little energy these past few weeks. He denies cold and flu symptoms, chest pain, pleuritic pain, shortness of breath, syncope, near syncope, melena, hematochezia, dysuria, and hematuria. Review of Systems Review of Systems: Twelve systems were reviewed and are negative except for as per HPI. [facility] Past Medical History Medical History (Updated 05/16/21 @ 23:02 by Maria Antonia Mcintyre PA-C) Actinic keratosis Anxiety with depression Benign essential hypertension Deep venous thrombosis Degenerative joint disease Diverticulitis (04/2021) Dyslipidemia Gastroesophageal reflux disease Hearing loss Insomnia Obstructive sleep apnea on CPAP Peripheral neuropathy Pneumonia Posttraumatic stress disorder Prediabetes Restless leg syndrome Vitamin D deficiency Surgical History Surgical History (Updated 05/16/21 @ 22:54 by Maria Antonia Mcintyre PA-C) History of hernia surgery History of left knee surgery History of repair of left rotator cuff History of tonsillectomy History of uvulopalatopharyngoplasty Family History Family History Mother Hypertension Family history of malignant neoplasm Family history of malignant neoplasm of breast in first degree relative Father Family history of heart disease in male family member before age 55 Family history of cardiovascular disease Social History Social History (Updated 05/16/21 @ 22:55 by Maria Antonia Mcintyre PA-C) Social History: Surrogate decision maker: Araceli Martinez, . Code status: Full code. Smoking status: Never smoker Second hand tobacco smoke exposure: No Alcohol intake: never Substance use: never Substance use type: does not use Living arrangements: with family Occupation/Education: retired Spiritual care concerns: No Meds Home Medications and Allergies Home Medications Medication Instructions Recorded Confirmed Type aspirin 81 mg tablet,delayed 81 mg PO DAILY 12/16/18 05/16/21 History release magnesium oxide 400 mg PO DAILY 12/16/18 05/16/21 History multivitamin 1 tablet PO DAILY 12/16/18 05/16/21 History Fiber Gummies 2 g PO DAILY 03/26/19 05/16/21 History Move Free [employer] 1 tablet PO BID 03/26/19 05/16/21 History omega 8-lra-rak-fish oil [Fish Oil] 1,200 cap PO TID 03/26/19 05/16/21 History clonazepam 1 mg tablet 1 mg PO QHS 90 Days #90 tablet 02/09/21 05/16/21 Rx losartan 100 mg PO DAILY 0
[2021-05-16] MEDS: FAMOTIDINE 20 MG/2 ML VIAL IV PUSH (20:31)
--- NOTE | 2021-05-16 23:20 | PCRCNOTE ---
Order received for home BiPAP/CPAP. Pt states that he used to use one but that his was recalled and he hasn't been using one. He does not wish to have one while he is here. No machine was placed in room. Pt was advised to let the nurse know if he changes his mind.
[2021-05-16] MEDS: traZODone HCL 50 MG TABLET 200 MG PO (23:46)
[2021-05-16] MEDS: GABAPENTIN 400 MG CAPSULE 1200 MG PO (23:47)
[2021-05-16] MEDS: carvediloL 25 MG TABLET PO (23:48)
[2021-05-16] MEDS: clonazePAM (*CRX) 0.5 MG TABLET 1 MG PO (23:48)
[2021-05-17] VITALS (7 sets, daily range): BP systolic 126–169; BP diastolic 54–81; PULSE 63–71; RESP 16–18; TEMP 36.4–37.1; O2SAT 92–94; BMI 32.8
[2021-05-17] MEDS: LACTATED RINGERS 1,000 ML 125 ML IV CONT ×3 (03:21→20:21)
[2021-05-17 06:18] LABS: Basophils Absolute Auto 0.1 K/mm3 (0.0-0.1); Basophils Percent Auto 1.1 % (0.2-1.2); Eosinophils Absolute Auto 0.2 K/mm3 (0-0.3); Eosinophils Percent Auto 2.9 % (0-4.4); Hematocrit 43.2 % (42.0-52.0); Hemoglobin 14.1 g/dL (14.0-18.0); Immature Granulocyte Absolute 0.02 K/mm3 (0.00-0.031); Immature Granulocyte Percent A 0.2 % (0-0.5); Lymphocytes Absolute Auto 2.07 K/mm3 (0.9-3.2); Lymphocytes Percent Auto 24.8 % (18.3-44.2); Mean Corpuscular HGB Conc 32.6 g/dl (32-36); Mean Corpuscular Hemoglobin 29.7 pg (26-34); Mean Corpuscular Volume 90.9 fl (80-100); Mean Platelet Volume 10.4 fl (7.4-10.4); Monocytes Absolute Auto 0.9 K/mm3 (0.1-0.6); Monocytes Percent Auto 11.3 % (2.6-8.5); Neutrophils Percent Auto 59.7 % (45.5-73.1); Platelet Count Result 280 k/mm3 (150-375); Red Blood Count 4.75 M/mm3 (4.6-6.20); Red Cell Distribution Width 12.4 % (11.5-14.5); White Blood Count 8.3 K/mm3 (4.5-10.0)
[2021-05-17 06:28] LABS: Alanine Aminotransferase 30 U/L (4-50); Albumin Level 3.5 g/dL (3.5-5.1); Alkaline Phosphatase 58 U/L (38-126); Anion Gap 6 mmol/L (8-16); Aspartate Amino Transferase 45 U/L (17-59); Bilirubin,Total 0.7 mg/dL (0.2-1.3); Blood Urea Nitrogen 28 mg/dL (9-20); Calcium 8.1 mg/dL (8.4-10.2); Carbon Dioxide 25 mmol/L (22-30); Chloride 107 mmol/L (98-107); Estimated CRCL calculation 89 ml/min; Estimated Glomerular Filt Rate > 60; Glucose 113 mg/dL (65-110); Lipase 122 U/L (23-300); Potassium 4.2 mmol/L (3.4-5.0); Sodium 138 mmol/L (137-145); Triglycerides 85 mg/dL (<150)
[2021-05-17] MEDS: LOSARTAN POTASSIUM 50 MG TABLET 100 MG PO (09:48)
[2021-05-17] MEDS: EZETIMIBE 10 MG TABLET PO (09:48)
[2021-05-17] MEDS: ASPIRIN 81 MG ENTERIC TABLET PO (09:48)
[2021-05-17] MEDS: FAMOTIDINE 20 MG/2 ML VIAL IV PUSH ×2 (09:48→20:20)
[2021-05-17] MEDS: carvediloL 25 MG TABLET PO ×2 (09:48→20:20)
[2021-05-17] MEDS: MAGNESIUM OXIDE 400 MG TABLET PO (09:48)
[2021-05-17] MEDS: GABAPENTIN 300 MG CAPSULE 1800 MG PO (12:23)
--- NOTE | 2021-05-17 12:47 | PM.IMPN ---
Progress Note: A&P Assessment and Plan (1) Acute pancreatitis: Qualifiers: Acute pancreatitis complication: unspecified Pancreatitis type: unspecified pancreatitis type Qualified Code(s): K85.90 - Acute pancreatitis without necrosis or infection, unspecified Code(s): K85.90 - Acute pancreatitis without necrosis or infection, unspecified Status: Acute Assessment and Plan: Precipitating etiology is not entirely clear but may be drug related given the fact he was recently on metronidazole. Lipase today however is well within normal limits. He will be treated with supportive care including IV fluid rehydration and bowel rest. Analgesics available as needed. Repeat lipase and check triglyceride levels in a.m. - 05/17/21: Continue IV hydration, NPO status pain management p.r.n.. Continue Pepcid IV push. Hold metformin. (2) Diffuse abdominal pain: Code(s): R10.84 - Generalized abdominal pain Status: Acute Assessment and Plan: He seems to have more diffuse lower abdominal pain though there are no acute findings on CT to correlate. There was no evidence of diverticulitis on imaging today and while his pain is similar I do not think another course of antibiotics is warranted. He was previously diagnosed with irritable bowel syndrome and given frequent GI upset and diarrhea, it may be prudent to hold his metformin to see if that makes a difference. - 05/17/21: etiology unknown. We will continue to treat as above with plan for acute pancreatitis. Should there be any worsening symptoms will consult GI. (3) Mild dehydration: Code(s): E86.0 - Dehydration Status: Acute Assessment and Plan: Secondary to poor appetite and poor oral intake. He is being hydrated as detailed above. - 05/17/21: Continue IV hydration, monitor vital signs and trend labs (4) Benign essential hypertension: Code(s): I10 - Essential (primary) hypertension Status: Acute Assessment and Plan: Blood pressures were reviewed and they have been running high though I do not think he took his medications yet this morning. He also seems to be in a bit of discomfort. Continue medications with sips of water and monitor blood pressures daily. - 05/17/21: Continue home medications with small sips of water, and monitor. Current blood pressure stable at 126/54. (5) Prediabetes: Code(s): R73.03 - Prediabetes Status: Acute Assessment and Plan: Patient has been on metformin with most recent hemoglobin A1c of less than 6%. As detailed above perhaps the metformin is causing his GI discomfort and diarrhea thus I would recommend trialing off of this to see if that makes a difference. - 05/17/21: Fasting glucose 113. (6) Obstructive sleep apnea on CPAP: Code(s): G47.33 - Obstructive sleep apnea (adult) (pediatric); Z99.89 - Dependence on other enabling machines and devices Status: Acute Assessment and Plan: CPAP will be provided for the patient to use while hospitalized. -monitor Subjective Date/time seen: 05/17/21 0900 This pleasant 71-year-old male was examined at the bedside in interval assessment today to presenting to the emergency room with complaints of having severe abdominal pain. He endorses that this pain has been present for past 4 weeks. On April 27 of this year he had a CT that showed diverticulitis and he was treated as outpatient with Ninfa Grier. He states that the pain has began to feel better but it never completely resolved. The pain is in the middle of the abdomen and radiates to the back and has associated sweats and chills without fever. In the emergency room he was evaluated and CT scan that was repeated was positive for an acute interstitial pancreatitis without diverticulitis. This patient's risk factors for pancreatitis only includes hyperlipidemia. Fasting lipid panel will be obtained to evaluate for hypertriglyceridemia. Patient is not
[2021-05-17] MEDS: GABAPENTIN 400 MG CAPSULE 1200 MG PO (20:19)
[2021-05-17] MEDS: traZODone HCL 50 MG TABLET 200 MG PO (20:19)
[2021-05-17] MEDS: clonazePAM (*CRX) 0.5 MG TABLET 1 MG PO (20:20)
[2021-05-18] VITALS (8 sets, daily range): BP systolic 149–182; BP diastolic 73–91; PULSE 63–66; RESP 14–18; TEMP 36.6–37.2; O2SAT 92–95
[2021-05-18] MEDS: LACTATED RINGERS 1,000 ML 125 ML IV CONT ×3 (05:01→21:04)
[2021-05-18 06:23] LABS: Basophils Absolute Auto 0.1 K/mm3 (0.0-0.1); Basophils Percent Auto 1.1 % (0.2-1.2); Eosinophils Absolute Auto 0.2 K/mm3 (0-0.3); Hematocrit 44.8 % (42.0-52.0); Hemoglobin 14.7 g/dL (14.0-18.0); Immature Granulocyte Absolute 0.02 K/mm3 (0.00-0.031); Immature Granulocyte Percent A 0.3 % (0-0.5); Lymphocytes Absolute Auto 2.54 K/mm3 (0.9-3.2); Lymphocytes Percent Auto 33.4 % (18.3-44.2); Mean Corpuscular HGB Conc 32.8 g/dl (32-36); Mean Corpuscular Hemoglobin 29.7 pg (26-34); Mean Corpuscular Volume 90.5 fl (80-100); Mean Platelet Volume 10.6 fl (7.4-10.4); Monocytes Absolute Auto 0.8 K/mm3 (0.1-0.6); Monocytes Percent Auto 10.6 % (2.6-8.5); Neutrophils Absolute Auto 3.9 K/mm3 (1.3-6.7); Neutrophils Percent Auto 51.6 % (45.5-73.1); Platelet Count Result 309 k/mm3 (150-375); Red Blood Count 4.95 M/mm3 (4.6-6.20); White Blood Count 7.6 K/mm3 (4.5-10.0)
[2021-05-18 06:35] LABS: Alanine Aminotransferase 30 U/L (4-50); Albumin Level 3.6 g/dL (3.5-5.1); Alkaline Phosphatase 73 U/L (38-126); Anion Gap 6 mmol/L (8-16); Aspartate Amino Transferase 43 U/L (17-59); Bilirubin,Total 0.4 mg/dL (0.2-1.3); Blood Urea Nitrogen 18 mg/dL (9-20); Calcium 8.8 mg/dL (8.4-10.2); Carbon Dioxide 25 mmol/L (22-30); Chloride 108 mmol/L (98-107); Cholesterol 124 mg/dL (0-200); Estimated CRCL calculation 80 ml/min; Estimated Glomerular Filt Rate > 60; Glucose 100 mg/dL (65-110); HDL Direct 29 mg/dL; Lipase 124 U/L (23-300); Magnesium 2.1 mg/dL (1.6-2.3); Potassium 3.8 mmol/L (3.4-5.0); Sodium 139 mmol/L (137-145); Triglycerides 115 mg/dL (<150)
[2021-05-18 06:45] LABS: LDL Cholesterol Direct 59 mg/dL
[2021-05-18] MEDS: FAMOTIDINE 20 MG/2 ML VIAL IV PUSH ×2 (09:32→21:06)
[2021-05-18] MEDS: LOSARTAN POTASSIUM 50 MG TABLET 100 MG PO (09:33)
[2021-05-18] MEDS: carvediloL 25 MG TABLET PO ×2 (09:33→21:18)
[2021-05-18] MEDS: MAGNESIUM OXIDE 400 MG TABLET PO (09:33)
[2021-05-18] MEDS: ASPIRIN 81 MG ENTERIC TABLET PO (09:33)
[2021-05-18] MEDS: EZETIMIBE 10 MG TABLET PO (09:33)
[2021-05-18] MEDS: hydrALAZINE 10 MG TABLET PO (11:04)
--- NOTE | 2021-05-18 11:35 | PM.IMPN ---
Progress Note: A&P Assessment and Plan (1) Acute pancreatitis: Qualifiers: Acute pancreatitis complication: unspecified Pancreatitis type: unspecified pancreatitis type Qualified Code(s): K85.90 - Acute pancreatitis without necrosis or infection, unspecified Code(s): K85.90 - Acute pancreatitis without necrosis or infection, unspecified Status: Acute Assessment and Plan: Precipitating etiology is not entirely clear but may be drug related given the fact he was recently on metronidazole. Lipase today however is well within normal limits. He will be treated with supportive care including IV fluid rehydration and bowel rest. Analgesics available as needed. Repeat lipase and check triglyceride levels in a.m. - 05/17/21: Continue IV hydration, NPO status pain management p.r.n.. Continue Pepcid IV push. Hold metformin. - 05/18/21: Continuing current IV hydration status. Transition to clear liquid diet today. KUB was negative for any signs of acute constipation or free air. IV morphine discontinued at this time and p.o. [place] ordered p.r.n.. Of note patient has not had any pain medication in the past 24 hours. This will consider advancing diet to regular for dinner today and if he tolerates that will consider discharge in the morning. Patient's lipase continues to be normal 124. Fasting lipid panel was checked and patient has a total cholesterol 124, triglycerides 115, LDL of 59 and HDL of 29. No leukocytosis is noted. He renal function and electrolytes are all normal. Patient does not appear to be having an acute pancreatitis flare. (2) Diffuse abdominal pain: Code(s): R10.84 - Generalized abdominal pain Status: Acute Assessment and Plan: He seems to have more diffuse lower abdominal pain though there are no acute findings on CT to correlate. There was no evidence of diverticulitis on imaging today and while his pain is similar I do not think another course of antibiotics is warranted. He was previously diagnosed with irritable bowel syndrome and given frequent GI upset and diarrhea, it may be prudent to hold his metformin to see if that makes a difference. - 05/17/21: etiology unknown. We will continue to treat as above with plan for acute pancreatitis. Should there be any worsening symptoms will consult GI. - 05/18/21: Continuing current IV hydration status. Transition to clear liquid diet today. KUB was negative for any signs of acute constipation or free air. IV morphine discontinued at this time and p.o. [place] ordered p.r.n.. Of note patient has not had any pain medication in the past 24 hours. This will consider advancing diet to regular for dinner today and if he tolerates that will consider discharge in the morning. Patient's lipase continues to be normal 124. Fasting lipid panel was checked and patient has a total cholesterol 124, triglycerides 115, LDL of 59 and HDL of 29. No leukocytosis is noted. He renal function and electrolytes are all normal. Patient does not appear to be having an acute pancreatitis flare. (3) Mild dehydration: Code(s): E86.0 - Dehydration Status: Resolved Assessment and Plan: Secondary to poor appetite and poor oral intake. He is being hydrated as detailed above. - 05/17/21: Continue IV hydration, monitor vital signs and trend labs - 05/18/21: Dehydration has resolved after being hydrated with IV fluids. Patient does not have MARLENA. See above plans for abdominal pain and acute pancreatitis. (4) Benign essential hypertension: Code(s): I10 - Essential (primary) hypertension Status: Acute Assessment and Plan: Blood pressures were reviewed and they have been running high though I do not think he took his medications yet this morning. He also seems to be in a bit of discomfort. Continue medications with sips of water and monitor blood pressures daily. - 05/17/21: Continue home medications with small sips of water, and monitor. Curr
[2021-05-18] MEDS: GABAPENTIN 300 MG CAPSULE 1800 MG PO (12:50)
[2021-05-18 13:28] LABS: IFOB Positive Control Positive; Immunochemical Fecal Occult Bl Negative (N)
--- NOTE | 2021-05-18 14:24 | PC.NURSE ---
On 05/18/21, the student, Eunice Orozco, provided care and completed [facility] documentation on this patient. I have reviewed the student's documentation and agree with the findings.
[2021-05-18] MEDS: HYDROcodone/acetaminophen (*CRX) 5-325 MG TABLET 1 TAB PO (15:26)
[2021-05-18] MEDS: clonazePAM (*CRX) 0.5 MG TABLET 1 MG PO (21:06)
[2021-05-18] MEDS: traZODone HCL 50 MG TABLET 200 MG PO (21:07)
[2021-05-18] MEDS: GABAPENTIN 400 MG CAPSULE 1200 MG PO (21:10)
[2021-05-18 21:43] LABS: Glucose Point of Care 84 mg/dl (65-105)
[2021-05-19] VITALS (7 sets, daily range): BP systolic 126–167; BP diastolic 65–80; PULSE 56–65; RESP 16–17; TEMP 36.5–36.9; O2SAT 95–100
[2021-05-19] MEDS: HYDROcodone/acetaminophen (*CRX) 5-325 MG TABLET 1 TAB PO ×3 (04:44→13:30)
[2021-05-19] MEDS: LACTATED RINGERS 1,000 ML 125 ML IV CONT ×3 (04:45→21:10)
[2021-05-19 06:11] LABS: Basophils Absolute Auto 0.1 K/mm3 (0.0-0.1); Basophils Percent Auto 1.2 % (0.2-1.2); Eosinophils Absolute Auto 0.2 K/mm3 (0-0.3); Eosinophils Percent Auto 3.1 % (0-4.4); Hemoglobin 13.3 g/dL (14.0-18.0); Immature Granulocyte Absolute 0.02 K/mm3 (0.00-0.031); Immature Granulocyte Percent A 0.3 % (0-0.5); Lymphocytes Absolute Auto 2.34 K/mm3 (0.9-3.2); Lymphocytes Percent Auto 34.5 % (18.3-44.2); Mean Corpuscular HGB Conc 32.4 g/dl (32-36); Mean Corpuscular Hemoglobin 29.5 pg (26-34); Mean Corpuscular Volume 90.9 fl (80-100); Mean Platelet Volume 10.2 fl (7.4-10.4); Monocytes Absolute Auto 0.8 K/mm3 (0.1-0.6); Monocytes Percent Auto 11.7 % (2.6-8.5); Neutrophils Absolute Auto 3.3 K/mm3 (1.3-6.7); Neutrophils Percent Auto 49.2 % (45.5-73.1); Platelet Count Result 272 k/mm3 (150-375); Red Blood Count 4.51 M/mm3 (4.6-6.20); Red Cell Distribution Width 12.1 % (11.5-14.5); White Blood Count 6.8 K/mm3 (4.5-10.0)
[2021-05-19 06:24] LABS: Alanine Aminotransferase 26 U/L (4-50); Albumin Level 3.1 g/dL (3.5-5.1); Alkaline Phosphatase 60 U/L (38-126); Anion Gap 4 mmol/L (8-16); Aspartate Amino Transferase 37 U/L (17-59); Bilirubin,Total 0.2 mg/dL (0.2-1.3); Blood Urea Nitrogen 14 mg/dL (9-20); Calcium 8.1 mg/dL (8.4-10.2); Carbon Dioxide 25 mmol/L (22-30); Chloride 111 mmol/L (98-107); Estimated CRCL calculation 78 ml/min; Estimated Glomerular Filt Rate > 60; Glucose 108 mg/dL (65-110); Lipase 100 U/L (23-300); Magnesium 2.1 mg/dL (1.6-2.3); Potassium 3.5 mmol/L (3.4-5.0); Sodium 140 mmol/L (137-145)
--- NOTE | 2021-05-19 06:55 | WPDGICN ---
Assessment and Plan Assessment and plan (1) Acute pancreatitis: Qualifiers: Acute pancreatitis complication: unspecified Pancreatitis type: unspecified pancreatitis type Qualified Code(s): K85.90 - Acute pancreatitis without necrosis or infection, unspecified Code(s): K85.90 - Acute pancreatitis without necrosis or infection, unspecified Status: Acute Assessment and Plan: although there changes seen in the pancreas on imaging, clinically he has no evidence of pancreatitis. He has dyslipidemia but at this time his triglycerides are normal. (2) Diverticulitis: Onset Date: 04/2021 Code(s): K57.92 - Diverticulitis of intestine, part unspecified, without perforation or abscess without bleeding Status: Acute Assessment and Plan: His initial symptoms and CT scan was certainly consistent with diverticulitis. Of concern however is the fact that he has ongoing pain after a very good course of antibiotics. Repeat CT scan now is not showing anything acute. I told the patient that we 10 to perform a colonoscopy several weeks after person has what is clinically thought to be diverticulitis, primarily to exclude other pathology that may have simulated that diagnosis. Given his persistent symptoms, I will schedule him for colonoscopy to be done tomorrow. (3) Abdominal pain, lower: Code(s): R10.30 - Lower abdominal pain, unspecified Status: Acute Assessment and Plan: As mentioned, his persistent symptoms are of a concern. We will schedule him for colonoscopy to rule out other pathology. (4) Chronic diarrhea: Code(s): K52.9 - Noninfective gastroenteritis and colitis, unspecified Status: Acute Assessment and Plan: He had been advised to take 2 Imodium tablets every morning to deal with his diarrhea but he states that it made him constipated and he subsequently stopped taking it altogether. He is back to having 1 or 2 looser stools on most days. (5) Dysphagia: Qualifiers: Dysphagia type: unspecified Qualified Code(s): R13.10 - Dysphagia, unspecified Code(s): R13.10 - Dysphagia, unspecified Status: Acute Additional Plan His EGD did not reveal any stricture. He had a dilatation done a few months ago and he states that his symptoms are better but occasionally has some difficulty with swallowing pills GI Consult Note Consult date/time: 05/19/21 06:55 HPI: Declan Martinez is a 71 year old male Was known to me with chronic diarrhea and also recent problems with swallowing. He had in fact an EGD a couple of months ago because occasionally food will get caught in his throat. A barium swallow showed a very thin cervical bandlike narrowing. EGD actually did not reveal any significant stricture but he had a dilatation and states that his symptoms have improved in that regard. Now however he is admitted to the emergency room because of persistent lower abdominal pain. He presented to the emergency department Three days ago for evaluation of abdominal pain. Nearly 4 weeks ago he developed diffuse lower abdominal discomfort and a CT of the abdomen and pelvis on 04/27/2021 showed mild proximal sigmoid diverticulitis for which he was prescribed ciprofloxacin and metronidazole. He completed the course of antibiotics and was feeling a bit better however the pain never completely resolved. In fact, the pain has gotten worse the last couple of days and while he still has diffuse lower abdominal discomfort he also has a pretty constant, aching pain in the left middle quadrant which radiates through to the back. He had night sweats and chills over the weekend but no documented fever. His appetite has been poor though he denies nausea and vomiting. he states that his pain has been constant for the past month. Only in the last day has he noted that he is also sore in the small of his back, in the midline over his lumbar spine. For his reason he is lying on
[2021-05-19 07:47] LABS: Glucose Point of Care 100 mg/dl (65-105)
[2021-05-19] MEDS: LOSARTAN POTASSIUM 50 MG TABLET 100 MG PO (08:46)
[2021-05-19] MEDS: carvediloL 25 MG TABLET PO ×2 (08:46→21:09)
[2021-05-19] MEDS: MAGNESIUM OXIDE 400 MG TABLET PO (08:46)
[2021-05-19] MEDS: ASPIRIN 81 MG ENTERIC TABLET PO (08:47)
[2021-05-19] MEDS: EZETIMIBE 10 MG TABLET PO (08:47)
[2021-05-19] MEDS: FAMOTIDINE 20 MG/2 ML VIAL IV PUSH ×2 (08:47→21:10)
[2021-05-19 11:24] LABS: Glucose Point of Care 148 mg/dl (65-105)
--- NOTE | 2021-05-19 11:28 | PCNFU ---
Nutrition Follow-Up Complete: Inadequate energy intake related to diet order as evidenced by clear liquid status at this time. Goal:Meet nutritional needs via diet advancement. Pt is progressing towards goal. Pt current nutrition is clear liquids for a colonoscopy. Nutrition recommendation: resume Diabetic carb consistent diet post procedure, with Glucerna BID Last recorded weight is 102.8 kg - 4kg loss noted Bowel Motility: +BM / Labs Reviewed: gluc: 148 Meds Noted: Skin: WNL Additional Notes: pt diet was advanced to Diabetic with glucerna shakes BID, intake was 50,100% of meals. Clear liquids today for colonoscopy prep, Ensure clear in place for supplement. Recommend to resume Diabetic diet and glucerna shakes post procedure. Monitor diet order, intake, wt. Follow up in 5 days.
[2021-05-19] MEDS: MORPHINE SULFATE (*CRX) 2 MG/ML INJ IV PUSH ×2 (11:36→15:36)
[2021-05-19] MEDS: GABAPENTIN 300 MG CAPSULE 1800 MG PO (11:39)
--- NOTE | 2021-05-19 13:09 | PC.NURSE ---
On 05/19/21, the student, [ Elizabeth Sanchez], provided care and completed [facility] documentation on this patient. I have reviewed the student's documentation and agree with the findings.
--- NOTE | 2021-05-19 13:39 | PC.NURSE ---
On 05/19/21, the student, [ Elizabeth Sanchez], provided care and completed [facility] documentation on this patient. I have reviewed the student's documentation and agree with the findings.
--- NOTE | 2021-05-19 15:25 | PCCCNOTE ---
On 05/19/21, the student, [Jennifer Villalta], provided care and completed [facility] documentation on this patient. I have reviewed the student's documentation and agree with the findings.
[2021-05-19] MEDS: polyethylene glycoL 3350 238 GM BOTTLE PO (15:26)
[2021-05-19 16:26] LABS: Glucose Point of Care 108 mg/dl (65-105)
[2021-05-19] MEDS: traZODone HCL 50 MG TABLET 200 MG PO (21:09)
[2021-05-19] MEDS: clonazePAM (*CRX) 0.5 MG TABLET 1 MG PO (21:09)
[2021-05-19] MEDS: GABAPENTIN 400 MG CAPSULE 1200 MG PO (21:10)
[2021-05-19 21:34] LABS: Glucose Point of Care 94 mg/dl (65-105)
[2021-05-20] VITALS (10 sets, daily range): BP systolic 109–212; BP diastolic 50–98; PULSE 61–76; RESP 14–21; TEMP 36.4–37.1; O2SAT 94–99
[2021-05-20] MEDS: MORPHINE SULFATE (*CRX) 2 MG/ML INJ IV PUSH (04:59)
[2021-05-20] MEDS: LACTATED RINGERS 1,000 ML 125 ML IV CONT (05:00)
[2021-05-20] MEDS: MAGNESIUM CITRATE 300 ML BTL 180 ML PO (05:01)
[2021-05-20 05:57] LABS: Basophils Absolute Auto 0.1 K/mm3 (0.0-0.1); Eosinophils Absolute Auto 0.3 K/mm3 (0-0.3); Eosinophils Percent Auto 2.7 % (0-4.4); Hematocrit 44.9 % (42.0-52.0); Hemoglobin 14.7 g/dL (14.0-18.0); Immature Granulocyte Absolute 0.01 K/mm3 (0.00-0.031); Immature Granulocyte Percent A 0.1 % (0-0.5); Lymphocytes Absolute Auto 2.13 K/mm3 (0.9-3.2); Lymphocytes Percent Auto 23.3 % (18.3-44.2); Mean Corpuscular HGB Conc 32.7 g/dl (32-36); Mean Corpuscular Hemoglobin 29.6 pg (26-34); Mean Corpuscular Volume 90.5 fl (80-100); Mean Platelet Volume 10.3 fl (7.4-10.4); Monocytes Absolute Auto 0.9 K/mm3 (0.1-0.6); Monocytes Percent Auto 10.2 % (2.6-8.5); Neutrophils Absolute Auto 5.7 K/mm3 (1.3-6.7); Neutrophils Percent Auto 62.7 % (45.5-73.1); Platelet Count Result 305 k/mm3 (150-375); Red Blood Count 4.96 M/mm3 (4.6-6.20); Red Cell Distribution Width 12.3 % (11.5-14.5); White Blood Count 9.1 K/mm3 (4.5-10.0)
[2021-05-20 06:17] LABS: Alanine Aminotransferase 31 U/L (4-50); Albumin Level 3.9 g/dL (3.5-5.1); Alkaline Phosphatase 64 U/L (38-126); Anion Gap 7 mmol/L (8-16); Aspartate Amino Transferase 43 U/L (17-59); Bilirubin,Total 0.5 mg/dL (0.2-1.3); Blood Urea Nitrogen 10 mg/dL (9-20); Calcium 8.5 mg/dL (8.4-10.2); Carbon Dioxide 24 mmol/L (22-30); Chloride 109 mmol/L (98-107); Estimated CRCL calculation 87 ml/min; Estimated Glomerular Filt Rate > 60; Glucose 114 mg/dL (65-110); Potassium 3.9 mmol/L (3.4-5.0); Sodium 140 mmol/L (137-145)
[2021-05-20] MEDS: FAMOTIDINE 20 MG/2 ML VIAL IV PUSH ×2 (08:55→20:40)
[2021-05-20] MEDS: LOSARTAN POTASSIUM 50 MG TABLET 100 MG PO (08:55)
[2021-05-20] MEDS: carvediloL 25 MG TABLET PO ×2 (08:55→20:39)
--- NOTE | 2021-05-20 13:10 | PC.NURSE ---
To GI lab via wheelchair.
--- NOTE | 2021-05-20 13:10 | WPDANESEPPF ---
Anes - Initial Pre Proc Eval Procedure: Operation Date: 05/20/21 13:45 Proposed Procedures p Colonoscopy - Jaron Abdullahi MD Date/Time: 05/20/21 13:10 Surgeon: ABIGAIL Kaur Pre Op Diagnosis: Acute Pancreatitis, Lower Abdominal Pain Patient Data Age: 71 Gender: M Height: 1.8 m Weight: 102 kg Last Vital Signs Temp 36.4 C L 05/20/21 05:31 Pulse 76 05/20/21 08:55 Resp 18 05/20/21 05:31 BP 157/73 H 05/20/21 05:31 Pulse Ox 94 05/20/21 05:31 Allergies Allergy/AdvReac Type Severity Reaction Status Date / Time poison yang extract Allergy Unknown Itching Verified 05/17/21 02:34 Pxoxluc-IIQ-JwS Reductase AdvReac Unknown muscle Verified 05/17/21 02:34 Inhibitor aches [Gtnhukq-Vvk-Dry Reductase Inhibitor] Home Medications Medication Instructions Recorded Confirmed Type aspirin 81 mg tablet,delayed 81 mg PO DAILY 12/16/18 05/16/21 History release magnesium oxide 400 mg PO DAILY 12/16/18 05/16/21 History multivitamin 1 tablet PO DAILY 12/16/18 05/16/21 History Fiber Gummies 2 g PO DAILY 03/26/19 05/16/21 History Move Free Joint Health 1 tablet PO BID 03/26/19 05/16/21 History omega 3-eou-snw-fish oil [Fish Oil] 1,200 cap PO TID 03/26/19 05/16/21 History clonazepam 1 mg tablet 1 mg PO QHS 90 Days #90 tablet 02/09/21 05/16/21 Rx losartan 100 mg PO DAILY 02/16/21 05/16/21 History ciprofloxacin HCl 500 mg tablet 500 mg PO Q12H 5 Days #10 tablet 05/13/21 05/16/21 Rx metronidazole 500 mg tablet 500 mg PO Q8H 5 Days #15 tablet 05/13/21 05/16/21 Rx carvedilol 25 mg PO BID 05/16/21 05/16/21 History ezetimibe 10 mg PO DAILY 05/16/21 05/16/21 History gabapentin 600 mg PO BID 05/16/21 05/16/21 History ibuprofen 600 mg PO TID PRN MDD 1800 05/16/21 05/16/21 History metformin 1,000 mg PO BID 05/16/21 05/16/21 History trazodone 200 mg PO DAILY 05/16/21 05/16/21 History Laboratory Tests 05/19/21 05/19/21 05/20/21 16:22 21:17 05:33 WBC RBC Hgb Hct MCV MCH MCHC RDW Plt Count MPV Immature Gran % (Auto) Neut % (Auto) Lymph % (Auto) [place] % (Auto) Eos % (Auto) Baso % (Auto) Lymph # (Auto) [place] # (Auto) Eos # (Auto) Baso # (Auto) Abs Immat Gran (auto) Absolute Neuts (auto) Absolute Nucleated RBC Nucleated RBC % Sodium 140 mmol/L mmol/L (137-145) Potassium 3.9 mmol/L mmol/L (3.4-5.0) Chloride 109 mmol/L H mmol/L (98-107) Carbon Dioxide 24 mmol/L mmol/L (22-30) Anion Gap 7 mmol/L L mmol/L (8-16) BUN 10 mg/dL mg/dL (9-20) Creatinine 0.80 mg/dL mg/dL (0.7-1.3) Estim Creat Clear Calc 87 ml/min ml/min Estimated GFR > 60 (59 - ) Glucose 114 mg/dL H mg/dL (65-110) POC Capillary Glucose 108 mg/dl H mg/dl 94 mg/dl mg/dl (65-105) (65-105) Calcium 8.5 mg/dL mg/dL (8.4-10.2) Magnesium 2.0 mg/dL mg/dL (1.6-2.3) Total Bilirubin 0.5 mg/dL mg/dL (0.2-1.3) AST 43 U/L U/L (17-59) ALT 31 U/L U/L (4-50) Alkaline Phosphatase 64 U/L U/L (38-126) Total Protein 7.0 g/dL g/dL (6.3-8.2) Albumin 3.9 g/dL g/dL (3.5-5.1) 05/20/21 05:34 WBC 9.1 K/mm3 K/mm3 (4.5-10.0) RBC 4.96 M/mm3 M/mm3 (4.6-6.20) Hgb 14.7 g/dL g/dL (14.0-18.0) Hct 44.9 % % (42.0-52.0) MCV 90.5 fl fl (80-100) MCH 29.6 pg pg (26-34) MCHC 32.7 g/dl g/dl (32-36) RDW 12.3 % % (11.5-14.5) Plt Count 305 k/mm3 k/mm3 (150-375) MPV 10.3 fl fl (7.4-10.4) Immature Gran % (Auto) 0.1 % % (0-0.5) Neut % (Auto) 62.7 % % (45.5-73.1) Lymph % (Auto) 23.3 % % (18.3-44.2)
[2021-05-20] MEDS: LACTATED RINGERS 1,000 ML 150 ML IV CONT (13:18)
--- NOTE | 2021-05-20 14:02 | PM.IMPN ---
Progress Note: A&P Assessment and Plan (1) Acute pancreatitis: Qualifiers: Acute pancreatitis complication: unspecified Pancreatitis type: unspecified pancreatitis type Qualified Code(s): K85.90 - Acute pancreatitis without necrosis or infection, unspecified Code(s): K85.90 - Acute pancreatitis without necrosis or infection, unspecified Status: Acute Assessment and Plan: - 05/17/21: Continue IV hydration, NPO status pain management p.r.n.. Continue Pepcid IV push. Hold metformin. - 05/18/21: Continuing current IV hydration status. Transition to clear liquid diet today. KUB was negative for any signs of acute constipation or free air. IV morphine discontinued at this time and p.o. [place] ordered p.r.n.. Of note patient has not had any pain medication in the past 24 hours. This will consider advancing diet to regular for dinner today and if he tolerates that will consider discharge in the morning. Patient's lipase continues to be normal 124. Fasting lipid panel was checked and patient has a total cholesterol 124, triglycerides 115, LDL of 59 and HDL of 29. No leukocytosis is noted. He renal function and electrolytes are all normal. 05/20/21Patient does not appear to be having an acute pancreatitis flare. Npo with iv fluids for now continue to monitor lipase levels (2) Diffuse abdominal pain: Code(s): R10.84 - Generalized abdominal pain Status: Acute Assessment and Plan: - 05/17/21: etiology unknown. We will continue to treat as above with plan for acute pancreatitis. Should there be any worsening symptoms will consult GI. - 05/18/21: Continuing current IV hydration status. Transition to clear liquid diet today. KUB was negative for any signs of acute constipation or free air. IV morphine discontinued at this time and p.o. [place] ordered p.r.n.. Of note patient has not had any pain medication in the past 24 hours. This will consider advancing diet to regular for dinner today and if he tolerates that will consider discharge in the morning. Patient's lipase continues to be normal 124. Fasting lipid panel was checked and patient has a total cholesterol 124, triglycerides 115, LDL of 59 and HDL of 29. No leukocytosis is noted. He renal function and electrolytes are all normal. -05/20/21 Pt going down for colonscopy today to rule for other causes of abdominal pains (3) Mild dehydration: Code(s): E86.0 - Dehydration Status: Resolved Assessment and Plan: - 05/17/21: Continue IV hydration, monitor vital signs and trend labs - 05/18/21: Dehydration has resolved after being hydrated with IV fluids. Patient does not have MARLENA. See above plans for abdominal pain and acute pancreatitis. - 05/20/21: Dehydration resolved (4) Benign essential hypertension: Code(s): I10 - Essential (primary) hypertension Status: Acute Assessment and Plan: - 05/17/21: Continue home medications with small sips of water, and monitor. Current blood pressure stable at 126/54. - 05/18/21: Blood pressures are mildly elevated running 160s to 180s systolic and 70s to 90s diastolic.. PRN Hydralazine is ordered for him we will continue to monitor pressures. Patient is receiving all his home medications for blood pressure including losartan 100 mg daily, carvedilol 25 mg b.i.d.. 05/19/2021: Bp running slightly high increase Bp meds (5) Prediabetes: Code(s): R73.03 - Prediabetes Status: Acute Assessment and Plan: - 05/17/21: Fasting glucose 113. - 05/18/21: Fasting glucose this morning was 100. (6) Obstructive sleep apnea on CPAP: Code(s): G47.33 - Obstructive sleep apnea (adult) (pediatric); Z99.89 - Dependence on other enabling machines and devices Status: Acute Assessment and Plan: CPAP will be provided for the patient to use while hospitalized. Subjective Date/time seen: 05/20/21 14:02 Interval history: 71-year-old male with h
--- NOTE | 2021-05-20 15:05 | PC.NURSE ---
Back from GI Lab via stretcher.
[2021-05-20] MEDS: MAGNESIUM OXIDE 400 MG TABLET PO (15:13)
[2021-05-20] MEDS: GABAPENTIN 300 MG CAPSULE 1800 MG PO (15:13)
[2021-05-20] MEDS: EZETIMIBE 10 MG TABLET PO (15:13)
[2021-05-20] MEDS: LIDOCAINE 5% PATCH 1 PATCH TRANSDERM (16:28)
[2021-05-20] MEDS: hydrALAZINE 5 MG TABLET PO ×2 (16:29→21:39)
[2021-05-20] MEDS: HYDROcodone/acetaminophen (*CRX) 5-325 MG TABLET 1 TAB PO (16:35)
[2021-05-20] MEDS: clonazePAM (*CRX) 0.5 MG TABLET 1 MG PO (20:39)
[2021-05-20] MEDS: traZODone HCL 50 MG TABLET 200 MG PO (20:40)
[2021-05-20] MEDS: GABAPENTIN 400 MG CAPSULE 1200 MG PO (20:40)
[2021-05-21 05:36] VITALS: BP 132/48; PULSE 65; RESP 16; TEMP 36.6; O2SAT 92
[2021-05-21] MEDS: LIDOCAINE 5% PATCH 1 PATCH TRANSDERM (08:25)
[2021-05-21 08:26] VITALS: PULSE 68
[2021-05-21 08:26] LABS: Hematocrit 42.4 % (42.0-52.0); Hemoglobin 14.4 g/dL (14.0-18.0); Mean Corpuscular Hemoglobin 29.9 pg (26-34); Mean Platelet Volume 10.4 fl (7.4-10.4); Platelet Count Result 298 k/mm3 (150-375); Red Blood Count 4.82 M/mm3 (4.6-6.20); White Blood Count 7.2 K/mm3 (4.5-10.0)
[2021-05-21] MEDS: FAMOTIDINE 20 MG/2 ML VIAL IV PUSH (08:26)
[2021-05-21] MEDS: LOSARTAN POTASSIUM 50 MG TABLET 100 MG PO (08:26)
[2021-05-21] MEDS: carvediloL 25 MG TABLET PO (08:26)
[2021-05-21] MEDS: EZETIMIBE 10 MG TABLET PO (08:26)
[2021-05-21] MEDS: MAGNESIUM OXIDE 400 MG TABLET PO (08:26)
[2021-05-21] MEDS: HYDROcodone/acetaminophen (*CRX) 5-325 MG TABLET 1 TAB PO (08:30)
[2021-05-21 08:37] LABS: Anion Gap 3 mmol/L (8-16); Blood Urea Nitrogen 10 mg/dL (9-20); Calcium 8.5 mg/dL (8.4-10.2); Carbon Dioxide 27 mmol/L (22-30); Chloride 108 mmol/L (98-107); Estimated CRCL calculation 87 ml/min; Estimated Glomerular Filt Rate > 60; Glucose 115 mg/dL (65-110); Potassium 3.6 mmol/L (3.4-5.0); Sodium 138 mmol/L (137-145)
--- NOTE | 2021-05-21 10:15 | PM.DS ---
DS: Admitting Diagnosis Discharge Date May 21, 2021 Admitting Diagnosis Abdominal pain DS: Discharge Diagnosis Discharge Diagnosis (1) Diffuse abdominal pain: Code(s): R10.84 - Generalized abdominal pain Status: Acute Assessment and Plan: Questionable etiology. Was some concern of possible pancreatitis although that was ruled out. Also concern for possible diverticulitis but again ruled out. Patient did have colonoscopy. GI recommended holding NSAIDs and aspirin for 1 week. Discussed with the patient. Patient was a prior to coming to the hospital on antibiotics. Symptoms have subsequently resolved. Tolerating a diet. Follow up with GI as needed. (2) Mild dehydration: Code(s): E86.0 - Dehydration Status: Resolved Assessment and Plan: Results (3) Benign essential hypertension: Code(s): I10 - Essential (primary) hypertension Status: Acute Assessment and Plan: Improve, monitor. Cardiac meds on discharge (4) Prediabetes: Code(s): R73.03 - Prediabetes Status: Acute Assessment and Plan: Per primary care doctor (5) Obstructive sleep apnea on CPAP: Code(s): G47.33 - Obstructive sleep apnea (adult) (pediatric); Z99.89 - Dependence on other enabling machines and devices Status: Acute Assessment and Plan: Continue CPAP at night DS: Summary Hospital Course Hospital Course: See plan, and discharge diagnoses Time Spent with Patient Time attestation: Total time spent providing and/or coordinating discharge services: Greater than 30 min Exam Narrative: General: Appears overall Respiratory: Lungs are clear to auscultation bilaterally. Cardiovascular: Regular rate and rhythm with S1-S2. Gastrointestinal: Soft, No rebound or guarding. Skin: Warm and dry. Extremities: No cyanosis, clubbing, or edema. Neurological: Alert. Cranial nerves 2-12 are grossly intact. No gross focal deficits to casual conversation. Psychiatric: Appropriate mood and affect. Const: General: comfortable and no acute distress HENMT: Mouth: Yes moist mucous membranes Eyes: Sclera: sclerae normal Neck: Neck: supple and no JVD Lymphatic: lymphadenopathy not noted Resp: Effort & Inspection: normal respiratory effort Auscultation: clear to auscultation bilaterally Cardio: Rate: regular rate Rhythm: regular rhythm GI: Auscultation: normal bowel sounds Skin: General skin exam: normal color, no rashes or lesions noted and no erythema Neuro: Cognition (Neuro): normal cognition Speech: normal speech Extrem: General: normal to inspection Psych: Mental Status: mental status grossly normal Affect: No normal affect (Flat affect) DS: Data Data Completed and Pending Pending studies at discharge: Pending at discharge 05/20/21 14:25 Surgical [PTH] Routine Labs on day of discharge: Labs from last 24 hours 05/21/21 05/21/21 07:46 07:46 WBC 7.2 RBC 4.82 Hgb 14.4 Hct 42.4 MCV 88.0 MCH 29.9 MCHC 34.0 RDW 12.0 Plt Count 298 MPV 10.4 Sodium 138 Potassium 3.6 Chloride 108 H Carbon Dioxide 27 Anion Gap 3 L BUN 10 Creatinine 0.80 Estim Creat Clear Calc 87 Estimated GFR > 60 Glucose 115 H Calcium 8.5 Discharge Plan Discharge Attending physician on discharge: tammy Consulting providers: Jaron Abdullahi Discharging Clinician: tammy Anticipated Discharge Date/Time: 05/21/21 10:09 Patient Disposition: Home, Self-Care Activity: no preference Diet: as tolerated Patient Instructions: Antibiotic Form, Pancreatitis (DC), Pain Management in Older Adults (DC), Abdominal Pain (GEN) Stand Alone Forms: General Discharge Information Follow-up/Referrals: Avtar Diop MD [Primary Care Provider] - 1 Week (Follow up with Dr. Diop on 05/24/21 at 11 am.) Discharge Medications: Continued magnesium oxide 400 mg magnesium tablet 400 mg PO DAILY RF: 0
[2021-05-21] MEDS: GABAPENTIN 300 MG CAPSULE 1800 MG PO (12:01)
== END 2021-05-21 13:45 | disposition home or self-care (01) | DRG 392 ==
LOC: ANHED 12:02 → ANH3MEDSUR 14:34
PROVIDERS: Emergency Medicine; Family Medicine; Internal Medicine Gastroenterology; Nurse Practitioner Adult Health; Physician Assistant; Admitting Provider Internal Medicine; Emergency Provider General Practice; PCP Internal Medicine; Visit Provider Chiropractor
PROC: 0DJD8ZZ Inspection of Lower Intestinal Tract, Via Natural or Artificial Opening Endoscopic (ICD-10-PCS; CPT 45378; principal; 2021-05-20 13:45)
DX: R10.84 Generalized abdominal pain (principal); K57.30 Diverticulosis of large intestine without perforation or abscess without bleeding; D12.0 Benign neoplasm of cecum; E86.0 Dehydration; E78.5 Hyperlipidemia, unspecified; E55.9 Vitamin D deficiency, unspecified; F41.8 Other specified anxiety disorders; G62.9 Polyneuropathy, unspecified; G25.81 Restless legs syndrome; G47.33 Obstructive sleep apnea (adult) (pediatric); H91.90 Unspecified hearing loss, unspecified ear; I10 Essential (primary) hypertension; K21.9 Gastro-esophageal reflux disease without esophagitis; K52.9 Noninfective gastroenteritis and colitis, unspecified; M19.90 Unspecified osteoarthritis, unspecified site; R13.10 Dysphagia, unspecified; R73.03 Prediabetes; Z79.82 Long term (current) use of aspirin; Z79.84 Long term (current) use of oral hypoglycemic drugs; Z79.899 Other long term (current) drug therapy; Z86.718 Personal history of other venous thrombosis and embolism
CPT/HCPCS: 36415; 72100; 74018; 74177; 80048; 80053; 80061; 81001; 82274; 82948; 83690; 83735; 84443; 84478; 85025; 85027; 88305; 96361; 96365; 96366; 96375; 96376; 99285; A9270; G0378; J2001; J2270; J2543; J2704; J7120; Q9967

== ENCOUNTER 2022-03-27 20:14 | Inpatient (IN) | payer MEDICARE, SELFPAY ==
[2022-03-27] VITALS (46 sets, daily range): BP systolic 109–158; BP diastolic 56–117; PULSE 93–105; RESP 0–32; TEMP 36.8; O2SAT 96–100
--- NOTE | ~2022-03-27 | CT_ITS ---
EXAMINATION: CT brain wo con DATE: 03/27/2022 20:20 INDICATION: AMS . TECHNIQUE: Computed tomography (CT) of the head was performed without intravenous contrast. The mA wa s adjusted according to patient size. Iterative reconstruction technique was employed. The dose-lengt h product was 1059.33 mGy-cm. COMPARISON: 10/16/2017. FINDINGS: No acute intracranial hemorrhage or extra-axial fluid collection. No hydrocephalus, mass, or herniation. No acute ischemic infarct. Unremarkable dural venous sinus attenuation. No acute osseous abnormality. The aerated spaces are clear. Mild atrophy and chronic white matter change. Atherosclerotic intracranial calcification. IMPRESSION: No acute intracranial process. Results reported telephonically to Dr. Penn by Dr. Elizondo at 8:25 PM on 03/27/2022. Reviewed, dictated and finalized at location K. VISION EQUIPMENT OPERATOR IMPRESSION: No acute intracranial process. Results reported telephonically to Dr. Penn by Dr. Elizondo at 8:25 PM on 03/27.
--- NOTE | ~2022-03-27 | MR_ITS ---
EXAMINATION: MR brain/brain stem wo con DATE: 03/29/2022 11:30 INDICATION: Altered mental status. TECHNIQUE: Magnetic resonance imaging (MRI) of the brain and brainstem was performed without intraven ous contrast. COMPARISON: Head CT 03/27/2022 FINDINGS: There are scattered areas of nonspecific increased T2-weighted signal intensity in the cere bral white matter, which is within normal limits for the patient's age. There is no intracranial hemo rrhage, acute infarction, or abnormal intracranial mass lesion. The ventricles are normal in size. Th e paranasal sinuses are clear. The orbits are normal. There is a trace left mastoid effusion. IMPRESSION: 1. Normal aging brain. Reviewed, dictated and finalized at location A. R MECHANIC IMPRESSION: 1. Normal aging brain.
--- NOTE | ~2022-03-27 | CT_ITS ---
EXAMINATION: CTA brain carotid DATE: 03/27/2022 21:26 INDICATION: altered mental status TECHNIQUE: Computed tomographic angiography (CTA) of the head and neck was performed with 200 mL Omni paque-350 intravenous contrast. Automated exposure control and iterative reconstruction technique wer e employed. The dose-length product was 1064.74 mGy-cm. Maximum intensity projection and volume rende red 3D-reconstructions were created by the technologist on a separate workstation. COMPARISON: CT brain, same date. FINDINGS: CTA HEAD: Motion artifact is present and multiple images, which obscures arterial detail at the base of the sku ll at the level of more distal arterial branches. No large vessel occlusion, aneurysm, high flow vasc ular malformation, nidus or extravasation. Carotid calcification at the level of the cavernous sinuse s, without significant stenosis. Patent cerebral veins. Symmetric parenchymal enhancement. CTA NECK: Motion artifact obscures arterial detail in several images. Aortic arch and proximal great vessels: Mild atherosclerotic calcifications at the visualized aortic arch and proximal great vessels. Right common carotid, carotid bifurcation, and internal carotid artery: Mild calcified plaque at the bifurcation.There is 0% stenosis of the proximal right internal carotid artery relative to normal dis parviz artery lumen diameter (NASCET criteria). Left common carotid, carotid bifurcation, and internal carotid artery: No significant plaque.There is 0% stenosis of the proximal left internal carotid artery relative to normal distal artery lumen diam eter (NASCET criteria). Vertebral arteries: No significant plaque or stenosis. Other findings: Nasogastric and endotracheal tubes. Subcentimeter right thyroid hypodensity which req uires no additional evaluation. Please also refer to the concurrent CT chest abdomen and pelvis for a dditional details. IMPRESSION: Motion limited examination. No definite large vessel occlusion. No definite severe carotid or vertebr al stenosis. Reviewed, dictated and finalized at location K. AT OPERATOR IMPRESSION: Motion limited examination. No definite large vessel occlusion. No definite sev ere carotid or vertebral stenosis.
--- NOTE | ~2022-03-27 | XR_ITS ---
XR chest 1V portable 03/29/2022 06:24 Indication: Respiratory failure Procedure: AP portable chest Comparison: Comparison to multiple prior studies sequentially, with oldest reviewed study dated 09/10. Findings: Interval removal of endotracheal and NG tubes. Cardiomegaly. There is atherosclerosis. Ther e is bibasilar atelectasis. No significant effusion or pneumothorax. There is atherosclerosis. Impression: 1: Bibasilar atelectasis. 2: Cardiomegaly. Reviewed, dictated and finalized at location A. S MANAGER Impression: 1: Bibasilar atelectasis. 2: Cardiomegaly.
--- NOTE | ~2022-03-27 | XR_ITS ---
EXAMINATION: XR chest ET placement Exam Date/Time: 03/27/2022 20:42 INSPECTOR TUBES HISTORY: ET TUBE PLACEMENT Comparison: 03/10/2020. RESULT: Lines, tubes, and devices: Endotracheal tube, terminating 1 cm above the trinity. Subdiaphragmatic NG tube. Lungs and pleura: Supine image with low volumes and slight rotation. Bilateral mid and lower lung ai rspace opacities. Cardiomediastinal silhouette: The mediastinum is wide. Other: No acute osseous or upper abdominal finding. IMPRESSION: Deep endotracheal tube, consider retraction by 3 cm. Widened mediastinum which may be an artifact of technique and positioning, but other pathology is not excluded, consider chest CT with contrast for f urther evaluation. Bilateral mid and lower lung atelectasis/consolidation. Results reported telephonically to Dr. Harrison by Dr. Elizondo at 8:55 PM on 03/27/2022. Reviewed, dictated and finalized at location K. ECTOR TUBES IMPRESSION: Deep endotracheal tube, consider retraction by 3 cm. Widened mediastinum which may be an artifact of technique and positioning, but other pathology is not exc luded, consider chest CT with contrast for further evaluation. Bilateral mid an d lower lung atelectasis/consolidation. Results reported telephonically to Dr. Harrison by Dr. Elizondo at 8:55 PM on .
--- NOTE | ~2022-03-27 | CT_ITS ---
EXAMINATION: CTA chest abdomen pelvis DATE: 03/27/2022 21:22 INDICATION: Widened mediastinum . TECHNIQUE: Computed tomography (CT) of the chest, abdomen, and pelvis was performed with 200 mL Omnip aque-350 intravenous contrast, timed for arterial enhancement. Automated exposure control and iterati ve reconstruction technique were employed. The dose-length product was 1844.23 mGy-cm. COMPARISON: None FINDINGS: Exam mildly limited by beam hardening from arm positioning. CHEST: Endotracheal tube, terminating 4.3 cm above the trinity. Thoracic aorta: No dissection or aneurysm. Mild arch calcification. Lung parenchyma and airways: Linear and subsegmental opacities in the dependent lungs. The airways ar e clear. Thoracic inlet, axillae and chest wall: No thyroid or soft tissue mass. No axillary lymphadenopathy. Mediastinum: No mass or lymphadenopathy. Heart and pericardium: Normal heart size. No pericardial effusion. Coronary artery calcifications: Mild. Pleura: No effusion or mass. Thoracic bones: No acute osseous finding in the chest. ABDOMEN/PELVIS: NG tube, tip and side port project within the stomach. Liver: Hepatomegaly. Diffuse fatty infiltration. Biliary/Gallbladder: Gallbladder is normal. No bile duct dilation. Pancreas: No mass or duct dilation. Spleen: Normal. Adrenals:No mass. Kidneys: Bilateral cortical thinning. Left midpole cyst. No suspicious mass, obstructive calcificatio n, or hydronephrosis. GI tract: No small or large bowel dilation. Normal appendix. Diverticulosis without diverticulitis. Mesentery/Peritoneum: No ascites, mass, or free air. Retroperitoneum: No mass Atherosclerotic abdominal aortic and/or arterial calcifications. Pelvis: The bladder is decompressed by a Vazquez catheter. Soft Tissues: Uncomplicated fat-containing bilateral inguinal hernias. Abdominopelvic bones: No acute osseous finding in the abdomen/pelvis. IMPRESSION: Endotracheal tube, nasogastric tube, and Vazquez catheter in good position. No acute mediastinal abnorm ality detected. Dependent atelectasis/consolidation, possibly with a component of minor aspiration gi justus the distribution. Otherwise, no acute process detected in the chest, abdomen, or pelvis. Reviewed, dictated and finalized at location K. NICAL PHOTOGRAPHER IMPRESSION: Endotracheal tube, nasogastric tube, and Vazquez catheter in good position. No ac [place] mediastinal abnormality detected. Dependent atelectasis/consolidation, poss ibly with a component of minor aspiration given the distribution. Otherwise, no acute process detected in the chest, abdomen, or pelvis.
--- NOTE | ~2022-03-27 | XR_ITS ---
EXAMINATION: XR chest 1V portable DATE: 03/30/2022 05:33 INDICATION: Respiratory failure. TECHNIQUE: A single frontal view of the chest was obtained. COMPARISON: Chest single view 03/29/2022, chest CT 03/27/2022 FINDINGS: There is mild atelectasis in the lower lung zones. No pleural effusion or pneumothorax. The heart size is normal. IMPRESSION: 1. Mild atelectasis in the lower lung zones. Reviewed, dictated and finalized at location A. LOGIST
--- NOTE | ~2022-03-27 | US_ITS ---
EXAMINATION: US soft tissue buttock LT DATE: 03/30/2022 09:25 INDICATION: Left buttock cellulitis. TECHNIQUE: Multiple grayscale and Doppler ultrasound images of the buttocks were obtained. COMPARISON: CT abdomen and pelvis 03/27/2022 FINDINGS: The subcutaneous fat in the left buttock is hyperechoic IMPRESSION: 1. Hyperechoic subcutaneous fat in the left buttock, consistent with inflammation. No abscess. Reviewed, dictated and finalized at location A. RUMENTATION INSTRUCTOR IMPRESSION: 1. Hyperechoic subcutaneous fat in the left buttock, consistent with inflammati on. No abscess.
--- NOTE | ~2022-03-27 | XR_ITS ---
EXAMINATION: XR chest 1V portable DATE: 03/31/2022 06:26 INDICATION: Respiratory failure. TECHNIQUE: A single frontal view of the chest was obtained. COMPARISON: Chest single view 03/30/2022 FINDINGS: There is mild atelectasis at right lung base. No pleural effusion or pneumothorax. The hear t size is normal. IMPRESSION: 1. Mild atelectasis at right lung base. Reviewed, dictated and finalized at location A. NCE VICE PRESIDENT
--- NOTE | 2022-03-27 20:20 | PC.NURSE ---
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 Bystanders called patient's family and EMS. Upon EMS arrival patient responsive to painful stimuli, no purposeful movement. Patient moved over from EMS stretcher on to ED stretcher. Patient eyes remain close, no purposeful movement noted, and patient jerking all extremities. EMS established IV in the right AC prior to arrival. Decision made upon patient arrival to ED to transport to CT for emergent CT scan of patient's head.
--- NOTE | 2022-03-27 20:31 | PC.NURSE ---
Patient unable to protect his own airway. Respiratory at bedside, Dr. Harrison at bedside to intubate patient. Patient placed in soft restraints due to jerking all extremities. Patient withdrawals from pain. Etomidate 20mg--2034 Succinylcholine 100mg--2034 ETT 7.5 placed at 2036 successfully at 23 at the lip. Patient has bilateral breath sound and positive color change on colormetric device. 2043:Tube placement verified by xray. 2045: Patient placed on ventilator with settings of: TV 500 PEEP 5 O2 100% Rate 16
[2022-03-27 20:34] LABS: Basophils Absolute Auto 0.1 K/mm3 (0.0-0.1); Basophils Percent Auto 1.1 % (0.2-1.2); Eosinophils Absolute Auto 0.2 K/mm3 (0-0.3); Eosinophils Percent Auto 2.1 % (0-4.4); Hematocrit 45.2 % (42.0-52.0); Hemoglobin 15.4 g/dL (14.0-18.0); Immature Granulocyte Absolute 0.04 K/mm3 (0.00-0.031); Immature Granulocyte Percent A 0.4 % (0-0.5); Lymphocytes Absolute Auto 3.75 K/mm3 (0.9-3.2); Mean Corpuscular HGB Conc 34.1 g/dl (32-36); Mean Corpuscular Hemoglobin 29.9 pg (26-34); Mean Corpuscular Volume 87.8 fl (80-100); Monocytes Absolute Auto 1.2 K/mm3 (0.1-0.6); Monocytes Percent Auto 10.9 % (2.6-8.5); Neutrophils Percent Auto 52.5 % (45.5-73.1); Platelet Count Result 278 k/mm3 (150-375); Red Blood Count 5.15 M/mm3 (4.6-6.20); Red Cell Distribution Width 12.3 % (11.5-14.5); White Blood Count 11.4 K/mm3 (4.5-10.0)
[2022-03-27] MEDS: ETOMIDATE 20 MG/10 ML AMPUL IV PUSH (20:35)
[2022-03-27] MEDS: SUCCINYLCHOLINE CHLORIDE 20 MG/ML 10 ML VIAL 100 MG IV PUSH (20:35)
[2022-03-27 20:46] LABS: Partial Thromboplastin Time 25.2 SECONDS (22.3-36.8); Prothrombin Time 12.9 Seconds (11.1-14.7)
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
[2022-03-27 20:53] LABS: Ethanol < 10 mg/dL (<10)
[2022-03-27 20:54] LABS: Alanine Aminotransferase 46 U/L (6-50); Albumin Level 4.6 g/dL (3.5-5.1); Alkaline Phosphatase 69 U/L (38-126); Anion Gap 5 mmol/L (8-16); Aspartate Amino Transferase 61 U/L (17-59); Bilirubin,Total 0.7 mg/dL (0.2-1.3); Blood Urea Nitrogen 26 mg/dL (9-20); Calcium 8.9 mg/dL (8.4-10.2); Carbon Dioxide 29 mmol/L (22-30); Chloride 100 mmol/L (98-107); Estimated Glomerular Filt Rate > 60; Glucose 167 mg/dL (65-110); Potassium 3.8 mmol/L (3.4-5.0); Sodium 134 mmol/L (137-145)
[2022-03-27 20:57] LABS: Triglycerides 100 mg/dL (<150)
[2022-03-27 21:01] LABS: Estimated Glomerular Filt Rate > 60
[2022-03-27 21:04] LABS: Troponin I < 0.012 ng/mL (0.000-0.034)
[2022-03-27 21:08] LABS: Appearance Urine Clear (Clear); Bilirubin Urine Negative (Negative); Blood Urine Trace-lysed (Negative); Color Urine Light Yellow (Yellow); Glucose Urine UA Negative (Negative); Ketones Urine Negative (Negative); Leukocyte Esterase Ur Negative LEU/UL (Negative); Nitrate Urine Negative (Negative); Protein Urine Negative (Negative); Urobilinogen Urine 0.2 mg/dL (<2.0); pH Urine 6.5 (5.0-9.0)
[2022-03-27 21:14] LABS: Squamous Epithelial Cell Urine Rare /hpf (Few); WBC Urine 0-3 /hpf
[2022-03-27 21:16] LABS: Add Urine Microscopic? YES
[2022-03-27 21:21] LABS: Amphetamine Screen Urine Negative (Negative); Barbiturate Screen Urine Negative (Negative); Benzodiazepines Screen Urine Negative (Negative); Cannabinoid Screen Urine Negative (Negative); Cocaine Screen Urine Negative (Negative); Methadone Screen Urine Negative (Negative); Opiate Screen Urine Negative (Negative); Phencyclidine Screen Urine Negative (Negative)
[2022-03-27] MEDS: PROPOFOL IV EMULSION 100 ML 3.44 MG IV CONT (21:29)
--- NOTE | 2022-03-27 22:20 | PC.NURSE ---
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 Bystanders called patient's family and EMS. Upon EMS arrival patient responsive to painful stimuli, no purposeful movement. Patient moved over from EMS stretcher on to ED stretcher. Patient eyes remain close, no purposeful movement noted, and patient jerking all extremities. EMS established IV in the right AC prior to arrival. Decision made upon patient arrival to ED to transport to CT for emergent CT scan of patient's head.
--- NOTE | 2022-03-27 22:22 | PC.NURSE ---
Patient resting comfortably on stretcher being mechanically ventilated. Patient has propofol infusing for continuous sedation. Ventilator settings: TV 500 PEEP 5 O2 100% Rate 16
--- NOTE | 2022-03-27 22:48 | PC.NURSE ---
Spoke with Monse from [facility] transfer line. Facility is requesting an ABG and lactic. Informed to call Monse back at her direct line [phone] with results once they are available.
[2022-03-27 22:54] LABS: Alveolar/Arterial O2 Gradient 482.6 mmHg; Base Excess ABG -0.2 mEq/l (+/-2.0); Fractional Inspired Oxygen 100 %; HCO3 ABG 23.7 mEq/l (22.0-26.0); Oxygen Content ABG 21.9 %vol (16.0-22.0); Oxygen Saturation ABG 99.4 % (95.0-100.0); Oxyhemoglobin 97.6 % THb (90.0-100.0); PCO2 ABG 36.4 mmHg (35.0-45.0); PO2 FiO2 Ratio Arterial Blood 1.94 %; Total Hemoglobin 15.7 g/dL (12.0-18.0); pH ABG 7.431 (7.350-7.450)
[2022-03-27 22:55] LABS: Device VENTILATOR; Modified Allen's Test Pass; Site Drawn RIGHT RADIAL
[2022-03-27 22:56] LABS: Arterial Blood Gas Vent Mode CMV; Arterial Blood Gas Ventilator rate 16 /MIN
[2022-03-27 22:57] LABS: Arterial Blood Gas PEEP 5 cmH2O; Arterial Blood Gas Tidal Volume 500 ml
--- NOTE | 2022-03-27 23:03 | PC.NURSE ---
Ventilator O2 changed: TV 500 PEEP 5 O2 60% Rate 16
[2022-03-27 23:17] LABS: Lactic Acid Reflex 1.3 mmol/L (0.7-2.0)
--- NOTE | 2022-03-27 23:24 | PC.NURSE ---
Operations Agent reached out to [facility] transfer center regarding requested labs. Monse was unavailable so labs given to another [facility] transfer center employee.
--- NOTE | 2022-03-27 23:53 | PC.NURSE ---
Monse from [facility] transfer center called proposal writer. Updated set of vital signs provided to Monse. Monse informed proposal writer that she would be in touch regarding transfer.
[2022-03-28] VITALS (99 sets, daily range): BP systolic 103–167; BP diastolic 56–92; PULSE 69–99; RESP 0–23; TEMP 36.6–38.6; O2SAT 75–100; BMI 34.3
--- NOTE | 2022-03-28 | ECHO_ITS ---
Patient Info Name: Declan Martinez Age: 71 years : 1950 Gender: Male Ht: 71 in Wt: 246 lbs BSA: 2.40 m2 HR: 84 bpm BP: 113 / 78 mmHg Heart Rhythm: Sinus Rhythm Technical Quality: Fair Exam Date: 03/28/2022 3:39 PM Exam Location: [facility] Pulmonary Patient Status: Inpatient Admit Date: 03/28/2022 Staff Ordering Physician: Deonna Gillespie NP Dev Technical Mgr: Abby Garcia RDCS Attending Provider: Alison Diaz MD Referring Physician: Jose Miguel JEFFERS; Exam Type: CA echo dop bubble study w con Study Info Indications - neuro symptoms Complete two-dimentional, color flow and Doppler transthoracic echocardiogram is performed with agitated saline and with contrast to opacify the left ventricle and to improve the delineation of the left ventricle endocardial borders. Contrast/Agitated Saline Contrast/Ag. Saline: Definity Amount: 3.00 ml Administered By: Abby Garcia RDCS Existing IV Access: Yes IV Access Condition: patent with no signs of infiltration Contrast/Ag. Saline: Agitated Saline Amount: 30.00 ml Existing IV Access: Yes IV Access Condition: patent with no signs of infiltration Summary 1. Left ventricular chamber dimension is normal. 2. Definity contrast administered improved wall motion interpretation. 3. Left ventricular systolic function is normal, estimated at 60-65%. 4. There is mild concentric increased left ventricular wall thickness. 5. The left ventricular diastolic function is grade I diastolic dysfunction. 6. E/e' 11 is mildly elevated. 7. There is mild aortic valve sclerosis. 8. There is trivial pericardial effusion. 9. Pleural effusion noted. Left Ventricle Definity contrast administered improved wall motion interpretation. E/e' 11 is mildly elevated. Left ventricular chamber dimension is normal. Left ventricular systolic function is normal, estimated at 60-65%. There is mild concentric increased left ventricular wall thickness. The left ventricular diastolic function is grade I diastolic dysfunction. Right Ventricle Right ventricular systolic function is normal and with normal TAPSE 2.9 cm. Right ventricular chamber dimension is normal. Left Atria Left atrial chamber dimension is normal. Right Atria Right atrial chamber dimension is normal. Atrial Septum Agitated saline injection with and without valsalva maneuver opacified right side cardiac chambers without obvious shunt to left side cardiac chambers. Intact interatrial septum visualized by 2D and agitated saline imaging. Aortic Valve The aortic valve is trileaflet. There is mild aortic valve sclerosis. There is no aortic valve stenosis. There is no aortic valve regurgitation. Pulmonic Valve There is no pulmonic regurgitation. Mitral Valve There is no mitral valve stenosis. There is no mitral valve regurgitation. Tricuspid Valve There is no tricuspid valve regurgitation. Pericardium/Pleural Pleural effusion noted. There is trivial pericardial effusion. Inferior Vena Cava Normal inferior vena cava with >50% collapse upon inspiration consistent with normal right atrial pressure, 5 mmHg. Aorta The aortic root size at the sinus of Valsalva is normal. Left Ventricular Outflow Tract Name Value Normal
--- NOTE | 2022-03-28 00:02 | ECG_ITS ---
Measurements Intervals [place] Rate: 95 P: 19 [place]: 147 QRS: 26 QRSD: 91 T: 28 QT: 365 QTc: 461 Interpretive Statements SINUS RHYTHM POSSIBLE LEFT ATRIAL ENLARGEMENT [-0.1mV P WAVE IN V1/V2] COMPARED TO ECG 11/25/2018 08:56:16 NO SIGNIFICANT CHANGES Electronically Signed On 03-28-2022 16:18:03 CLAY DIGGER by Tracy Marcus M.D.
--- NOTE | 2022-03-28 00:21 | PC.NURSE ---
Second bottle of Propofol started at 0020.
[2022-03-28 00:25] LABS: Influenza A QL RT-PCR Negative (Negative); Influenza B QL RT-PCR Negative (Negative); RSV RNA, RT-PCR Negative (Negative); SARS-CoV-2 RNA PCR Negative
--- NOTE | 2022-03-28 01:14 | PC.NURSE ---
Patient still awaiting transfer facility bed assignment. Dr. Harrison contacting [facility], [facility], and [facility] to find accepting facility. Patient on [facility] waiting list per Dr. Harrison.
[2022-03-28] MEDS: PROPOFOL IV EMULSION 100 ML 27.48 MG IV CONT ×3 (01:47→07:50)
--- NOTE | 2022-03-28 03:03 | PC.NURSE ---
Patient's son: bAraham Sandoval [phone]
[2022-03-28 06:02] LABS: Alveolar/Arterial O2 Gradient 279.5 mmHg; Base Excess ABG 4.2 mEq/l (+/-2.0); Fractional Inspired Oxygen 60 %; HCO3 ABG 28.3 mEq/l (22.0-26.0); Oxygen Content ABG 20.7 %vol (16.0-22.0); Oxyhemoglobin 96.5 % THb (90.0-100.0); PCO2 ABG 40.2 mmHg (35.0-45.0); PO2 ABG 104.1 mmHg (80.0-100.0); PO2 FiO2 Ratio Arterial Blood 1.74 %; Total Hemoglobin 15.2 g/dL (12.0-18.0); pH ABG 7.465 (7.350-7.450)
[2022-03-28 06:05] LABS: Device VENTILATOR; Modified Allen's Test Pass; Site Drawn RIGHT RADIAL
[2022-03-28 06:06] LABS: Arterial Blood Gas Vent Mode CMV; Arterial Blood Gas Ventilator rate 16 /MIN
[2022-03-28 06:07] LABS: Arterial Blood Gas PEEP 5 cmH2O; Arterial Blood Gas Tidal Volume 500 ml
[2022-03-28 06:51] LABS: Basophils Absolute Auto 0.1 K/mm3 (0.0-0.1); Basophils Percent Auto 0.6 % (0.2-1.2); Eosinophils Absolute Auto 0.1 K/mm3 (0-0.3); Eosinophils Percent Auto 0.6 % (0-4.4); Hematocrit 42.5 % (42.0-52.0); Hemoglobin 14.4 g/dL (14.0-18.0); Immature Granulocyte Absolute 0.03 K/mm3 (0.00-0.031); Immature Granulocyte Percent A 0.2 % (0-0.5); Lymphocytes Absolute Auto 1.82 K/mm3 (0.9-3.2); Lymphocytes Percent Auto 14.6 % (18.3-44.2); Mean Corpuscular HGB Conc 33.9 g/dl (32-36); Mean Corpuscular Hemoglobin 30.1 pg (26-34); Mean Corpuscular Volume 88.7 fl (80-100); Monocytes Absolute Auto 1.4 K/mm3 (0.1-0.6); Monocytes Percent Auto 10.8 % (2.6-8.5); Neutrophils Absolute Auto 9.1 K/mm3 (1.3-6.7); Neutrophils Percent Auto 73.2 % (45.5-73.1); Platelet Count Result 270 k/mm3 (150-375); Red Blood Count 4.79 M/mm3 (4.6-6.20); Red Cell Distribution Width 12.2 % (11.5-14.5); White Blood Count 12.5 K/mm3 (4.5-10.0)
--- NOTE | 2022-03-28 07:08 | PC.NURSE ---
Patient care report given to BREANNA Wright. All questions answered at this time and care turned over to BREANNA Wright.
[2022-03-28 07:52] LABS: Ammonia 10 umol/L (9-30)
[2022-03-28 09:06] LABS: Alanine Aminotransferase 41 U/L (6-50); Albumin Level 3.9 g/dL (3.5-5.1); Alkaline Phosphatase 71 U/L (38-126); Anion Gap 7 mmol/L (8-16); Aspartate Amino Transferase 46 U/L (17-59); Bilirubin,Total 0.5 mg/dL (0.2-1.3); Blood Urea Nitrogen 25 mg/dL (9-20); Calcium 8.8 mg/dL (8.4-10.2); Carbon Dioxide 27 mmol/L (22-30); Chloride 101 mmol/L (98-107); Estimated Glomerular Filt Rate > 60; Glucose 134 mg/dL (65-110); Potassium 3.7 mmol/L (3.4-5.0); Sodium 135 mmol/L (137-145)
--- NOTE | 2022-03-28 09:20 | ADMGEN ---
This patient, Declan Martinez, was admitted to Intensive Care Unit-9. Patient/family oriented to hospital policies and general routines including ID bracelet, bed and alarms, visiting hours, pain management, procedures, bathroom and other care routines, personal items, smoking policy, room service/diet, and visiting hours. Information on how to activate the Rapid Response Team has been discussed. Patient/Family are encouraged to report perceived risks to care and to ask questions if they do not understand what they are told or what they should do.
[2022-03-28 10:00] LABS: Troponin I 0.025 ng/mL (0.000-0.034)
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
[2022-03-28] MEDS: SODIUM CHLORIDE 0.9% IV 1,000 ML 125 ML IV CONT ×2 (10:43→19:55)
--- NOTE | 2022-03-28 10:45 | WPDCNINT ---
Assessment and Plan Assessment and plan (1) Acute respiratory failure: Code(s): J96.00 - Acute respiratory failure, unspecified whether with hypoxia or hypercapnia Status: Acute Assessment and Plan: Acute Respiratory failure secondary to encephalopathy Patient is currently on mechanical ventilation ABG and CTA reviewed Started Zosyn for aspiration pneumonia Patient is now following commands on sedation holiday. I placed patient on weaning trial. If ABG is acceptable I will try to extubate patient. (2) Encephalopathy: Code(s): G93.40 - Encephalopathy, unspecified Status: Acute Assessment and Plan: Head CT was negative on presentation Head neck CTA Motion limited examination. No definite large vessel occlusion. No definite severe carotid or vertebral stenosis. Case was discussed with [facility] Neurology and patient was found not to be candidate for any invasive intervention or tPA Ischemic CVAs a possible. No seizures were seen at the scene Toxic Metabolic encephalopathy is another possibility as patient is on clonazepam Neurontin and trazodone which are all sedatives. Patient noded is head yes to taking his medications last night Ammonia level was normal Check TSH Once patient is extubated I will obtain MRI of the brain He is afebrile and acute change in mental status suggest against infectious etiology Continue aspirin Neurology consult (3) Aspiration pneumonia: Code(s): J69.0 - Pneumonitis due to inhalation of food and vomit Status: Acute Assessment and Plan: Empiric Zosyn Blood cultures IV fluids (4) Hyperlipidemia: Code(s): E78.5 - Hyperlipidemia, unspecified Status: Acute Assessment and Plan: Continue Zetia (5) Hypertension: Code(s): I10 - Essential (primary) hypertension Status: Acute Assessment and Plan: P.r.n. labetalol (6) Prediabetes: Code(s): R73.03 - Prediabetes Status: Acute Assessment and Plan: SSI ordered Plan DVT prophylaxis- Patient has mention of DVT in his past medical history but currently is not on any anticoagulation. For now I have started him on Lovenox for DVT prophylaxis Stress ulcer prophylaxis -PPI Nutrition -NPO Code Status - Full Code Total Critical Care Time - 40 minutes Due to a high probability of clinically significant, life threatening deterioration, the patient required my highest level of preparedness to intervene emergently and I personally spent this critical care time directly and personally managing the patient. This critical care time included obtaining a history; examining the patient; pulse oximetry; ordering and review of studies; arranging urgent treatment with development of a management plan; evaluation of patient's response to treatment; frequent reassessment; and discussions with other providers. It was exclusive of separately billable procedures and treating other patients and teaching time. Please see Assessment and Plan section and the rest of the note for further information on patient assessment and treatment Breeder Service Technician Consult Note Consult date: 03/28/22 Reason for consult: Acute respiratory failure, altered mental status HPI: Declan Martinez is a 71 year old male with past medical history of hypertension, DVT, GERD, hyperlipidemia sleep apnea neuropathy was brought to ER last night with chief complaint of altered mental status. Patient was at local [employer] [facility] where he slumped over at the table and passed out. Per bystanders patient was not acting right and they tried to diagnose and treat it a at the scene before calling EMS. On arrival to ED patient had GCS of 3 and was unable to provide any history and was intubated for airway protection. He had normal blood sugar. He was evaluated for CVA. Head CT was negative and CTA of head and neck did not show any large vessel occlusion. Case at that time was discussed with stroke neurology at [facility]
[2022-03-28 11:03] LABS: Alveolar/Arterial O2 Gradient 208.7 mmHg; Fractional Inspired Oxygen 50 %; HCO3 ABG 29.1 mEq/l (22.0-26.0); Oxygen Content ABG 21.1 %vol (16.0-22.0); Oxygen Saturation ABG 97.5 % (95.0-100.0); Oxyhemoglobin 96.5 % THb (90.0-100.0); PO2 ABG 97.2 mmHg (80.0-100.0); PO2 FiO2 Ratio Arterial Blood 1.94 %; Total Hemoglobin 15.5 g/dL (12.0-18.0); pH ABG 7.428 (7.350-7.450)
[2022-03-28 11:05] LABS: Device VENTILATOR; Modified Allen's Test Pass; Site Drawn RIGHT RADIAL
[2022-03-28] MEDS: PANTOPRAZOLE SODIUM IV 40 MG VIAL IV PUSH (11:22)
[2022-03-28] MEDS: ENOXAPARIN 40 MG/0.4 ML SYRINGE SUB-Q (11:22)
[2022-03-28 11:26] LABS: Glucose Point of Care 140 mg/dl (65-105)
--- NOTE | 2022-03-28 12:19 | PM.IMHP ---
H&P: HPI History of Present Illness Date/Time: 03/28/22 12:19 Chief Complaint: Altered mental status Narrative: This is a 71-year-old male patient who has a history of anxiety and hypertension. The patient was brought to the emergency room due to altered mental status. 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 He was there for several minutes. His family was called and his family decided he was not acting right and they waited until 8:00 p.m. to call EMS. The patient was unable to provide any history. His blood sugar was normalized according to EMS and he was transported to the closest hospital. The patient was found to have a absent gag. His CT scan head showed no acute intracranial hemorrhage. CT of the head and neck showed no evidence of large vessel occlusion that would be treatable with neuro intervention. The patient is on the waiting list for medical intensive care unit at [place]. There is a several day weight. Neurology agreed to see the patient here and the lunchroom supervisor agreed to see the patient here as well. The patient was intubated last night and had been extubated this morning. The patient is awake and does not understand why he needs to be here. We will explain not the patient needs further testing. His white count is 12.5. Initial pH on ABG was 7.465 and is now 7.428. Initial PO2 was 10.1 now it is 97.2. Bicarb initially was 20.3 and is now 29.1. His blood glucoses in the 130s and 140. Urine was negative. Toxicology screen was negative patient was negative for influenza a B influenza and COVID. Chest abdominal pelvis CTA was read as following Endotracheal tube, nasogastric tube, and Vazquez catheter in good position. No acute mediastinal abnormality detected. Dependent atelectasis/consolidation, possibly with a component of minor aspiration given the distribution. Otherwise, no acute process detected in the chest, abdomen, or pelvis. Head neck CTA was read as the followingMotion limited examination. No definite large vessel occlusion. No definite severe carotid or vertebral stenosis. Head CT read as no acute intracranial process. The patient is being admitted to inpatient status on the date of service of 03/28/2022 Review of Systems Review of Systems: See HPI All systems reviewed & are unremarkable except as noted in HPI and below Constitutional: Constitutional: Reports as per HPI and Reports no additional constitutional complaints Eyes: Eyes: Reports as per HPI and Reports no additional eye complaints ENT: Reports system reviewed and no additional complaints, except as documented and Reports Normal hearing present Cardiovascular: Cardiovascular: Reports no additional cardiovascular complaints Respiratory: Respiratory: Reports no additional respiratory complaints and Reports no additional respiratory complaints Gastrointestinal: Gastrointestinal: Reports as per HPI and Reports no additional gastrointestinal complaints Musculoskeletal: Musculoskeletal: Reports no additional musculoskeletal complaints Integumentary/Breasts: Skin/Breast: Reports system reviewed and no additional complaints, except as docu and Reports as per HPI Neurologic: Reports system reviewed and no additional complaints, except as documented, Reports as per HPI and Reports Normal hearing present Psychiatric: Psychiatric: Reports no additional psychiatric complaints and Reports as per HPI Endocrine: Endocrine: Reports no additional endocrine complaints Hematologic/Lymphatic: Hematologic/Lymphatic: Reports no additional hematologic/lymphatic complaints Allergic/Immunologic: Allergic/Immunologic: Reports no additional allergic/immunologic complaints PMFSH Past Medical History Medical History Actinic keratosis Acute embolism and thrombosis of unspecified deep veins of right lower extremity Acute post-traumatic headache, not intractabl
[2022-03-28] MEDS: EZETIMIBE 10 MG TABLET PO (12:23)
[2022-03-28 13:28] LABS: Arterial Blood Gas PEEP 5 cmH2O; Arterial Blood Gas Pressure Support 5 cmH2O; Arterial Blood Gas Vent Mode SPONTANEOUS
[2022-03-28 14:28] LABS: Thyroid Stimulating Hormone Reflex 0.946 uIU/mL (0.465-4.68)
[2022-03-28] MEDS: GABAPENTIN 300 MG CAPSULE 1800 MG PO ×2 (14:48→20:48)
[2022-03-28] MEDS: PERFLUTREN LIPID MICROSPHERES 1.5 ML VIAL DILUTED TO 10 ML TOTAL VOLUME IV PUSH (16:20)
--- NOTE | 2022-03-28 16:21 | IVDEFINITY ---
Prior to administration of IV Definity the patient was educated on the risks and benefits of the imaging enhancing agent including potential adverse side effects. The patient verbalized understanding. Allergies were verified. No exclusion criteria were identified and at least one of the following inclusion criteria were met: 1) physician request, 2) patient technically difficult to image (per the [place] [employer] guidelines of two or more segments not discernable within the apical view), or 3) questionable left ventricular function. ?
[2022-03-28 17:03] LABS: Glucose Point of Care 141 mg/dl (65-105)
[2022-03-28] MEDS: carvediloL 25 MG TABLET PO (20:49)
[2022-03-29] VITALS (14 sets, daily range): BP systolic 123–144; BP diastolic 47–108; PULSE 72–88; RESP 16–24; TEMP 36.2–38.8; O2SAT 93–96
[2022-03-29 00:23] LABS: Glucose Point of Care 137 mg/dl (65-105)
[2022-03-29] MEDS: ACETAMINOPHEN 325 MG TABLET 650 MG PO ×2 (01:12→20:07)
[2022-03-29 04:03] LABS: Hematocrit 40.4 % (42.0-52.0); Hemoglobin 13.4 g/dL (14.0-18.0); Mean Corpuscular HGB Conc 33.2 g/dl (32-36); Mean Corpuscular Hemoglobin 29.7 pg (26-34); Mean Corpuscular Volume 89.6 fl (80-100); Mean Platelet Volume 10.2 fl (7.4-10.4); Platelet Count Result 210 k/mm3 (150-375); Red Blood Count 4.51 M/mm3 (4.6-6.20); Red Cell Distribution Width 12.3 % (11.5-14.5); White Blood Count 15.2 K/mm3 (4.5-10.0)
[2022-03-29 04:18] LABS: Alanine Aminotransferase 48 U/L (6-50); Albumin Level 3.3 g/dL (3.5-5.1); Alkaline Phosphatase 53 U/L (38-126); Anion Gap 1 mmol/L (8-16); Aspartate Amino Transferase 129 U/L (17-59); Bilirubin,Total 0.8 mg/dL (0.2-1.3); Blood Urea Nitrogen 25 mg/dL (9-20); Calcium 7.7 mg/dL (8.4-10.2); Carbon Dioxide 30 mmol/L (22-30); Chloride 106 mmol/L (98-107); Estimated CRCL calculation 91 ml/min; Estimated Glomerular Filt Rate > 60; Glucose 122 mg/dL (65-110); Magnesium 1.9 mg/dL (1.6-2.3); Potassium 3.6 mmol/L (3.4-5.0); Sodium 137 mmol/L (137-145)
[2022-03-29 04:22] LABS: Hemoglobin A1C 6.1 % (<5.7)
[2022-03-29] MEDS: SODIUM CHLORIDE 0.9% IV 1,000 ML 125 ML IV CONT (04:30)
--- NOTE | 2022-03-29 08:00 | PCNEURO ---
EEG canceled per Dr Blackburn as patient condition has improved
[2022-03-29] MEDS: POTASSIUM CHLORIDE 20 MEQ TABLET 40 MEQ PO (08:42)
[2022-03-29] MEDS: ENOXAPARIN 40 MG/0.4 ML SYRINGE SUB-Q (08:42)
[2022-03-29] MEDS: PANTOPRAZOLE SODIUM IV 40 MG VIAL IV PUSH (08:43)
[2022-03-29] MEDS: ASPIRIN 325 MG TABLET PO (08:43)
[2022-03-29] MEDS: carvediloL 25 MG TABLET PO ×2 (08:43→20:08)
[2022-03-29] MEDS: EZETIMIBE 10 MG TABLET PO (08:43)
--- NOTE | 2022-03-29 08:48 | WPDINTPN ---
Progress Note: A&P Assessment and Plan (1) Acute respiratory failure: Code(s): J96.00 - Acute respiratory failure, unspecified whether with hypoxia or hypercapnia Status: Acute Assessment and Plan: Acute Respiratory failure secondary to encephalopathy 03/28 extubated after a successful weaning trial Now saturating well on nasal cannula Continue Zosyn for aspiration pneumonia Incentive spirometry, up in chair (2) Encephalopathy: Code(s): G93.40 - Encephalopathy, unspecified Status: Acute Assessment and Plan: Head CT was negative on presentation Head neck CTA Motion limited examination. No definite large vessel occlusion. No definite severe carotid or vertebral stenosis. Case was discussed with [facility] and patient was found not to be candidate for any invasive intervention or tPA Ischemic CVAs a possible. No seizures were seen at the scene Toxic Metabolic encephalopathy is another possibility as patient is on clonazepam Neurontin and trazodone which are all sedatives. On arrival to ICU patient woke up and started following commands. Sedation was discontinued and patient is extubated This morning he is alert oriented x3 and does not appear to have any focal neurological deficit Ammonia and TSH level was normal New patient was seen by Neurology MRI ordered and pending Continue aspirin (3) Aspiration pneumonia: Code(s): J69.0 - Pneumonitis due to inhalation of food and vomit Status: Acute Assessment and Plan: Empiric Zosyn Blood cultures negative till now He was on IV fluids which I will discontinue now (4) Hyperlipidemia: Code(s): E78.5 - Hyperlipidemia, unspecified Status: Acute Assessment and Plan: Continue Zetia (5) Hypertension: Code(s): I10 - Essential (primary) hypertension Status: Acute Assessment and Plan: P.r.n. labetalol P.o. Coreg (6) Prediabetes: Code(s): R73.03 - Prediabetes Status: Acute Assessment and Plan: SSI ordered Plan DVT prophylaxis- Patient has mention of DVT in his past medical history but currently is not on any anticoagulation. For now I have started him on Lovenox for DVT prophylaxis Stress ulcer prophylaxis -PPI Nutrition -speech evaluation and then advance diet Code Status - Full Code Speech evaluation, PT OT Transfer out of ICU today Subjective Date/time seen: 03/29/22 Overnight events reviewed. Patient was extubated yesterday after a successful weaning trial He saturating well on nasal cannula. He has been febrile overnight. He states that he has been having cough this morning but slept well. Denies any expectoration Denies any other complaints Patient denies fever, chest pain, shortness of breath, nausea vomiting, abdominal pain,, diarrhea, headache or constipation. He denies any weakness numbness bloody vision. Other Vitals acceptable Regarding presentation patient does not remember anything. He states he took his medications at 4:00 p.m. and went to the meeting but does not remember anything since then. He denies any drug use or alcohol intake that day. He does not know why he is on Neurontin Review of Systems Review of Systems: All systems reviewed & are unremarkable except as noted in HPI and below Exam Narrative: General: Pt is alert awake and in NAD Lungs/Chest: Trachea central Clear BS B/L, No crackles or wheezing. Cardiac: RRR. Normal S1 S2. No murmurs Circulation: Pedal pulses are intact and symmetrical. Abdomen: Normal bowel sounds.. Soft. NT. ND. Extremities: No clubbing, cyanosis or edema. Warm : Vazquez in place Neurologic: Follows commands. Moves all 4 extremities PERRL AO x3, muscle strength 5/5 bilaterally in all 4 extremities. He does appear not to make too much effort during the exam, cranial nerves 2-12 intact Skin: No Rash Objective Data Vital Signs Vital Signs: Vital Signs - 24 hr 03/28/22 09:13
[2022-03-29 09:01] LABS: Glucose Point of Care 140 mg/dl (65-105)
--- NOTE | 2022-03-29 09:47 | PCSTNOTE ---
Please refer to the Bedside Swallow Evaluation in the EMR. Please note, silent aspiration cannot be ruled out at bedside.
[2022-03-29 12:35] LABS: Glucose Point of Care 118 mg/dl (65-105)
[2022-03-29 16:43] LABS: Glucose Point of Care 84 mg/dl (65-105)
[2022-03-29 20:36] LABS: Glucose Point of Care 132 mg/dl (65-105)
[2022-03-29 21:37] LABS: Triglycerides 107 mg/dL (<150)
[2022-03-30] VITALS (11 sets, daily range): BP systolic 113–132; BP diastolic 53–61; PULSE 68–94; RESP 16–20; TEMP 36.2–37.3; O2SAT 95–96
[2022-03-30] MEDS: ACETAMINOPHEN 325 MG TABLET 650 MG PO ×3 (04:45→18:57)
[2022-03-30 06:06] LABS: Hematocrit 41.1 % (42.0-52.0); Hemoglobin 13.8 g/dL (14.0-18.0); Mean Corpuscular HGB Conc 33.6 g/dl (32-36); Mean Corpuscular Hemoglobin 30.4 pg (26-34); Mean Corpuscular Volume 90.5 fl (80-100); Platelet Count Result 197 k/mm3 (150-375); Red Blood Count 4.54 M/mm3 (4.6-6.20); Red Cell Distribution Width 12.3 % (11.5-14.5); White Blood Count 13.4 K/mm3 (4.5-10.0)
[2022-03-30 07:38] LABS: Glucose Point of Care 125 mg/dl (65-105)
[2022-03-30 07:47] LABS: Alanine Aminotransferase 49 U/L (6-50); Albumin Level 3.3 g/dL (3.5-5.1); Alkaline Phosphatase 54 U/L (38-126); Anion Gap 2 mmol/L (8-16); Aspartate Amino Transferase 110 U/L (17-59); Bilirubin,Total 0.8 mg/dL (0.2-1.3); Blood Urea Nitrogen 20 mg/dL (9-20); Calcium 7.9 mg/dL (8.4-10.2); Carbon Dioxide 29 mmol/L (22-30); Chloride 106 mmol/L (98-107); Estimated CRCL calculation 74 ml/min; Estimated Glomerular Filt Rate > 60; Glucose 116 mg/dL (65-110); Magnesium 2.1 mg/dL (1.6-2.3); Potassium 4.1 mmol/L (3.4-5.0); Sodium 137 mmol/L (137-145)
[2022-03-30] MEDS: ASPIRIN 325 MG TABLET PO (09:32)
[2022-03-30] MEDS: ENOXAPARIN 40 MG/0.4 ML SYRINGE SUB-Q (09:32)
[2022-03-30] MEDS: carvediloL 25 MG TABLET PO ×2 (09:33→20:26)
[2022-03-30] MEDS: EZETIMIBE 10 MG TABLET PO (09:33)
[2022-03-30] MEDS: PANTOPRAZOLE SODIUM IV 40 MG VIAL IV PUSH (09:34)
[2022-03-30] MEDS: HYDROcodone/acetaminophen (*CRX) 5-325 MG TABLET 1 TAB PO ×2 (09:59→16:23)
[2022-03-30 11:51] LABS: Glucose Point of Care 120 mg/dl (65-105)
--- NOTE | 2022-03-30 15:00 | PM.IMPN ---
Progress Note: A&P Assessment and Plan (1) Acute respiratory failure: Code(s): J96.00 - Acute respiratory failure, unspecified whether with hypoxia or hypercapnia Status: Acute Assessment and Plan: The patient had been intubated yesterday but is now extubated. The patient is awake and talking. -the patient is on oxygen. -patient was started on Zosyn for possibility of aspiration pneumonia. -CTAMotion limited examination. No definite large vessel occlusion. No definite severe carotid or vertebral stenosis. 03/30/2022 interval history: patient presented with encephalopathy workup with CT of the head and MRI of the brain a negative patient was seen by limnologist and suspect aspiration pneumonia resulting in sepsis, and being treated with with Zosyn will follow-up on blood culture, repeat x-ray tomorrow and further recommendation to follow, patient also complained of and swelling lung left buttock to further evaluate ultrasound was done shows inflammation but no sign of infection abscess, concerning for encephalopathy will consult neurology for further recommended, patient's and son are present in the room and answered all their questions (2) Aspiration pneumonia: Code(s): J69.0 - Pneumonitis due to inhalation of food and vomit Status: Acute Assessment and Plan: -the patient was started on Zosyn. -titrate antibiotics according to cultures. -sputum and blood cultures are pending. (3) Encephalopathy: Code(s): G93.40 - Encephalopathy, unspecified Status: Acute Assessment and Plan: Could be related to acute respiratory arrest -or could be related to bacterial infection. -also needing to rule out CVA versus TIA versus seizure activity. -an echo bubble has been ordered -neurology has been consulted. -continue with aspirin. -an MRI has been ordered. -EEG. (4) Hyperlipidemia: Code(s): E78.5 - Hyperlipidemia, unspecified Status: Acute Assessment and Plan: -continue Zetia (5) Hypertension: Code(s): I10 - Essential (primary) hypertension Status: Acute Assessment and Plan: -p.r.n. Labetalol (6) Obstructive sleep apnea on CPAP: Code(s): G47.33 - Obstructive sleep apnea (adult) (pediatric); Z99.89 - Dependence on other enabling machines and devices Status: Acute Assessment and Plan: -continue with home settings CPAP/BiPAP (7) Anxiety with depression: Code(s): F41.8 - Other specified anxiety disorders Status: Acute Assessment and Plan: -continue with home medications. (8) Prediabetes: Code(s): R73.03 - Prediabetes Status: Acute Assessment and Plan: -the patient is now on a clear liquid diet so will change his Accu-Cheks to a.c. and HS with sliding scale insulin. Hypoglycemic protocol and check A1c Subjective Date/time seen: 03/30/22 15:00 Altered mental status Narrative: This is a 71-year-old male patient who has a history of anxiety and hypertension.? The patient was brought to the emergency room due to altered mental status.? The patient was attending a local [employer] meeting when he is was found to be slumped over table.? He was there for several minutes.? His family was called and his family decided he was not acting right and they waited until 8:00 p.m. to call EMS.? The patient was unable to provide any history.? His blood sugar was normalized according to EMS and he was transported to the closest hospital.? The patient was found to have a absent gag.? His CT scan head showed no acute intracranial hemorrhage.? CT of the head and neck showed no evidence of large vessel occlusion that would be treatable with neuro intervention.? The patient is on the waiting list for medical intensive care unit at [place].? There is a several day weight.? Neurology agreed to see the patient here and the limnologist agreed to see the patient here as well.? The patient was intubated last night and h
[2022-03-30 16:18] LABS: Glucose Point of Care 109 mg/dl (65-105)
[2022-03-30 21:29] LABS: Glucose Point of Care 120 mg/dl (65-105)
[2022-03-30] MEDS: clonazePAM (*CRX) 0.5 MG TABLET PO (22:39)
[2022-03-31] VITALS (9 sets, daily range): BP systolic 130; BP diastolic 68; PULSE 67–88; RESP 16; TEMP 37.1–37.8; O2SAT 93–96
[2022-03-31] MEDS: ACETAMINOPHEN 325 MG TABLET 650 MG PO (05:30)
[2022-03-31 07:55] LABS: Glucose Point of Care 135 mg/dl (65-105)
[2022-03-31 08:14] LABS: Hematocrit 41.1 % (42.0-52.0); Hemoglobin 13.7 g/dL (14.0-18.0); Mean Corpuscular HGB Conc 33.3 g/dl (32-36); Mean Corpuscular Hemoglobin 30.2 pg (26-34); Mean Corpuscular Volume 90.7 fl (80-100); Mean Platelet Volume 10.4 fl (7.4-10.4); Platelet Count Result 224 k/mm3 (150-375); Red Blood Count 4.53 M/mm3 (4.6-6.20); Red Cell Distribution Width 12.2 % (11.5-14.5); White Blood Count 12.6 K/mm3 (4.5-10.0)
[2022-03-31 08:38] LABS: Alanine Aminotransferase 52 U/L (6-50); Albumin Level 3.6 g/dL (3.5-5.1); Alkaline Phosphatase 53 U/L (38-126); Anion Gap 3 mmol/L (8-16); Aspartate Amino Transferase 115 U/L (17-59); Bilirubin,Total 0.8 mg/dL (0.2-1.3); Blood Urea Nitrogen 22 mg/dL (9-20); Calcium 7.8 mg/dL (8.4-10.2); Carbon Dioxide 27 mmol/L (22-30); Chloride 101 mmol/L (98-107); Estimated CRCL calculation 83 ml/min; Estimated Glomerular Filt Rate > 60; Glucose 123 mg/dL (65-110); Magnesium 2.1 mg/dL (1.6-2.3); Potassium 3.7 mmol/L (3.4-5.0); Sodium 131 mmol/L (137-145)
[2022-03-31] MEDS: carvediloL 25 MG TABLET PO (10:00)
[2022-03-31] MEDS: EZETIMIBE 10 MG TABLET PO (10:01)
[2022-03-31] MEDS: ASPIRIN 325 MG TABLET PO (10:01)
[2022-03-31] MEDS: GABAPENTIN 300 MG CAPSULE 600 MG PO (10:02)
[2022-03-31] MEDS: ENOXAPARIN 40 MG/0.4 ML SYRINGE SUB-Q (10:02)
[2022-03-31] MEDS: PANTOPRAZOLE SODIUM IV 40 MG VIAL IV PUSH (10:02)
--- NOTE | 2022-03-31 11:19 | WPDNEUROPN ---
Subjective Date/time seen: 03/31/22 11:19 Interval history: follow-up note patient was initially seen by Dr. Henry with the ongoing complaints of of acute mental status changes with prediabetes hypertension hyperlipidemia, restless leg syndrome neuropathy obstructive sleep apnea patient was reportedly found unresponsive MRI of the brain was recommended which was normal, patient is being treated for aspiration pneumonia encephalopathy at present is being as doing secondary to respiratory difficulties and at this stage his EEG is being done will follow with Objective Data Vital Signs Vital Signs: Vital Signs - 24 hr 03/30/22 12:02 03/30/22 16:00 03/30/22 16:02 Temperature 36.2 C L Pulse Rate 68 71 71 Respiratory Rate 17 Blood Pressure 113/53 L Pulse Oximetry 96 Oxygen Delivery 03/30/22 20:26 03/30/22 20:40 03/30/22 20:00 Temperature 36.6 C Pulse Rate 76 71 Respiratory Rate 20 Blood Pressure 132/53 L Pulse Oximetry 96 Oxygen Delivery Room Air 03/30/22 20:00 03/31/22 00:00 03/31/22 04:00 Temperature Pulse Rate 74 79 67 Respiratory Rate Blood Pressure Pulse Oximetry Oxygen Delivery 03/31/22 05:30 03/31/22 04:40 03/31/22 06:30 Temperature 37.8 C H 37.8 C H 37.1 C Pulse Rate 71 Respiratory Rate 16 Blood Pressure 130/68 Pulse Oximetry 93 Oxygen Delivery 03/31/22 08:32 03/31/22 10:07 03/31/22 10:00 Temperature Pulse Rate 88 75 Respiratory Rate Blood Pressure Pulse Oximetry 96 Oxygen Delivery Room Air Room Air 03/31/22 08:00 03/31/22 08:00 Temperature Pulse Rate 74 Respiratory Rate Blood Pressure Pulse Oximetry Oxygen Delivery Room Air Intake/Output Intake/Output: Intake & Output 03/28/22 03/29/22 03/30/22 03/31/22 23:59 23:59 23:59 23:59 Intake Total 2050 2600 2630 337 Output Total 2575 1450 1200 Balance -525 1150 1430 337 Meds/Results Medications: Active Medications Generic Name Dose Route Start Last Admin Trade Name Freq PRN Reason Stop Dose Admin Acetaminophen 650 mg 03/29/22 00:56 03/31/22 05:30 Acetaminophen 325 Mg Tablet PO 650 mg Q6H PRN Administration Mild Pain (1-3) or Fever Hydrocodone Bitart/Acetaminophen 1 tab 03/30/22 09:46 03/30/22 16:23 Hydrocodone/Acetaminophen (*Crx) 5-325 Mg Tablet PO 1 tab Q6H PRN Administration Pain Rated 4-6 Aspirin 325 mg 03/29/22 08:00 03/31/22 10:01 Aspirin 325 Mg Tablet PO 325 mg DAILY@0800 MARYELLEN Administration Carvedilol 25 mg 03/28/22 21:00 03/31/22 10:00 Carvedilol 25 Mg Tablet PO 25 mg Q12HR MARYELLEN Administration Clonazepam 1 mg 03/31/22 21:00 Clonazepam (*Crx) 0.5 Mg Tablet PO HS MARYELLEN Dextrose 12.5 gm 03/28/22 10:07 Dextrose 50% 25 Gm/50 Ml Syringe IV PUSH PRN PRN Hypoglycemia Protocol Ezetimibe 10 mg 03/28/22 09:00 03/31/22 10:01 Ezetimibe 10 Mg Tablet PO 10 mg QAM MARYELLEN Administration Enoxaparin Sodium 40 mg 03/28/22 10:15 03/31/22 10:02 Enoxaparin 40 Mg/0.4 Ml Syringe SUB-Q 40 mg DAILY MARYELLEN Administration Gabapentin 1,800 mg 03/28/22 14:25 03/28/22 20:48 Gabapentin 300 Mg Capsule PO 1,800 mg BID@1200,2100 MARYELLEN Administration Gabapentin 600 mg 03/31/22 17:00 Gabapentin 300 Mg Capsule PO BIDWM MARYELLEN Glucagon 1 mg 03/28/22 10:07 Glucagon For Inj 1 Mg Vial IM PRN PRN Hypoglycemia Protocol Glucose 15 gm 03/28/22 10:07 Glucose Oral Gel 15 Gm Of Glucse In 37.5 Gm Tube PO PRN PRN Hypoglycemia Protocol Piperacillin/Tazobactam/Dextrose 3.375 gm in 50 mls @ 100 mls/hr 03/28/22 18:00 03/31/22 05:31 Zosyn 3.375 Gm/D5w 50ml Pm IVPB Infused Q6H MARYELLEN Infusion Dextrose 1,000 mls @ 100 mls/hr 03/28/22 10:07 Dextrose 5% 1,000 Ml IVPB PRN PRN Hypoglycemia Protocol Insulin Aspart 2 - 5 units 03/28/22 17:00 03/31/22 08:01 Insulin Aspart (*Bkc) 100 Units/Ml
[2022-03-31 12:10] LABS: Glucose Point of Care 122 mg/dl (65-105)
--- NOTE | 2022-03-31 14:22 | PM.DS ---
DS: Admitting Diagnosis Discharge Date 03/31/2022 Admitting Diagnosis Altered mental status DS: Discharge Diagnosis Discharge Diagnosis (1) Acute respiratory failure: Code(s): J96.00 - Acute respiratory failure, unspecified whether with hypoxia or hypercapnia Status: Acute Assessment and Plan: The patient had been intubated yesterday but is now extubated. The patient is awake and talking. -the patient is on oxygen. -patient was started on Zosyn for possibility of aspiration pneumonia. -CTAMotion limited examination. No definite large vessel occlusion. No definite severe carotid or vertebral stenosis. 03/30/2022 interval history: patient presented with encephalopathy workup with CT of the head and MRI of the brain a negative patient was seen by feather mixer and suspect aspiration pneumonia resulting in sepsis, and being treated with with Zosyn will follow-up on blood culture, repeat x-ray tomorrow and further recommendation to follow, patient also complained of and swelling lung left buttock to further evaluate ultrasound was done shows inflammation but no sign of infection abscess, concerning for encephalopathy will consult neurology for further recommended, patient's and son are present in the room and answered all their questions (2) Aspiration pneumonia: Code(s): J69.0 - Pneumonitis due to inhalation of food and vomit Status: Acute Assessment and Plan: -the patient was started on Zosyn. -titrate antibiotics according to cultures. -sputum and blood cultures are pending. (3) Encephalopathy: Code(s): G93.40 - Encephalopathy, unspecified Status: Acute Assessment and Plan: Could be related to acute respiratory arrest -or could be related to bacterial infection. -also needing to rule out CVA versus TIA versus seizure activity. -an echo bubble has been ordered -neurology has been consulted. -continue with aspirin. -an MRI has been ordered. -EEG. (4) Hyperlipidemia: Code(s): E78.5 - Hyperlipidemia, unspecified Status: Acute Assessment and Plan: -continue Zetia (5) Hypertension: Code(s): I10 - Essential (primary) hypertension Status: Acute Assessment and Plan: -p.r.n. Labetalol (6) Obstructive sleep apnea on CPAP: Code(s): G47.33 - Obstructive sleep apnea (adult) (pediatric); Z99.89 - Dependence on other enabling machines and devices Status: Acute Assessment and Plan: -continue with home settings CPAP/BiPAP (7) Anxiety with depression: Code(s): F41.8 - Other specified anxiety disorders Status: Acute Assessment and Plan: -continue with home medications. (8) Prediabetes: Code(s): R73.03 - Prediabetes Status: Acute Assessment and Plan: -the patient is now on a clear liquid diet so will change his Accu-Cheks to a.c. and HS with sliding scale insulin. Hypoglycemic protocol and check A1c DS: Summary Hospital Course Reason for hospitalization: Altered mental status Narrative: This is a 71-year-old male patient who has a history of anxiety and hypertension.? The patient was brought to the emergency room due to altered mental status.? 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 He was there for several minutes.? His family was called and his family decided he was not acting right and they waited until 8:00 p.m. to call EMS.? The patient was unable to provide any history.? His blood sugar was normalized according to EMS and he was transported to the closest hospital.? The patient was found to have a absent gag.? His CT scan head showed no acute intracranial hemorrhage.? CT of the head and neck showed no evidence of large vessel occlusion that would be treatable with neuro intervention.? The patient is on the waiting list for medical intensive care unit at [place].? There is a several day weight.? Neurology agreed to see the
--- NOTE | 2022-04-03 10:22 | WPDNEUROLOGY ---
Neurology EEG Report General Information Date of Study: 03/31/22 TEST eeg DIAGNOSIS syncopal episode CONDITION OF RECORDING awake drowsy and sleep EEG NUMBER [id number] CLINICAL HISTORY patient was brought into hospital for dizziness and losing consciousness EEG DESCRIPTION basic resting occipital frequency consists of moderately well-organized low to PD voltage 8 to 10 hertz per 2nd alpha admixed with low-voltage 15 to 18 hertz per 2nd beta. Low-voltage beta activity seen diffusely during drowsiness. Bilateral symmetrical sleep activity seen during sleep. Hyperventilation not done. Photic stimulation not done. Non paroxysmal. Nonfocal. Nonlateralizing. IMPRESSION Normal record
== END 2022-03-31 15:40 | disposition home or self-care (01) | DRG 208 ==
LOC: ANHED 23:58 → ANHICU 03-28 08:25 → ANH3MEDSUR 03-29 18:54
PROVIDERS: Emergency Medicine; Internal Medicine; Nurse Practitioner; Admitting Provider Family Medicine; Emergency Provider Emergency Medicine; PCP Internal Medicine; Visit Provider Family Medicine
DX: J96.00 Acute respiratory failure, unspecified whether with hypoxia or hypercapnia; J69.0 Pneumonitis due to inhalation of food and vomit; G93.40 Encephalopathy, unspecified; L08.9 Local infection of the skin and subcutaneous tissue, unspecified; E78.5 Hyperlipidemia, unspecified; F41.8 Other specified anxiety disorders; F32.A Depression, unspecified; G62.9 Polyneuropathy, unspecified; G89.29 Other chronic pain; G25.81 Restless legs syndrome; G47.33 Obstructive sleep apnea (adult) (pediatric); H91.90 Unspecified hearing loss, unspecified ear; I10 Essential (primary) hypertension; R73.03 Prediabetes; K21.9 Gastro-esophageal reflux disease without esophagitis; M19.90 Unspecified osteoarthritis, unspecified site; Z20.822 Contact with and (suspected) exposure to COVID-19; Z79.84 Long term (current) use of oral hypoglycemic drugs; Z79.82 Long term (current) use of aspirin; Z86.718 Personal history of other venous thrombosis and embolism
CPT/HCPCS: 31500; 36415; 36600; 70450; 70496; 70498; 70551; 71045; 71275; 74174; 76705; 80053; 80307; 81001; 82140; 82805; 82948; 83036; 83605; 83735; 84443; 84478; 84484; 85025; 85027; 85610; 85730; 87040; 87637; 92610; 93005; 95816; 96365; 96366; 96375; 97161; 97165; 99285; A9270; C8929; C9113; J0330; J1650; J2543; J2704; J7030; Q9957; Q9967

== ENCOUNTER 2022-05-24 10:34 | Outpatient (CLI) | payer MEDICARE, SELFPAY ==
--- NOTE | ~2022-05-24 | XR_ITS ---
EXAMINATION: XR cervical spine min 6V DATE: 05/24/2022 10:55 INDICATION: Neck pain. TECHNIQUE: 7 views of cervical spine including flexion and extension views were obtained. COMPARISON: None. FINDINGS: There is 2 mm retrolisthesis of C4 on C5. There is no abnormal motion with flexion or exten crow. There is 6 degrees levocurvature of cervicothoracic spine. Vertebral body heights are normal. T here is severely decreased disc height at C4-C5 and C5-C6. There is severe uncovertebral joint osteoa rthritis bilaterally at C4-C5 and C5-C6. There is multilevel mild facet joint osteoarthritis. On the left, there is moderate facet joint osteoarthritis at C5-C6. There is mild neural foraminal stenosis bilaterally at C4-C5 and C5-C6. There is mild central canal stenosis at C4-C5 and C5-C6. No preverteb ral soft tissue swelling. IMPRESSION: 1. Severe cervical spondylosis. Reviewed, dictated and finalized at location A.
== END 2022-05-24 10:35 | disposition home or self-care (01) ==
PROVIDERS: PCP Internal Medicine; Visit Provider Internal Medicine
DX: R51.9 Headache, unspecified (principal); M54.2 Cervicalgia; M43.02 Spondylolysis, cervical region
CPT/HCPCS: 72052

== ENCOUNTER 2022-11-16 08:22 | Outpatient (CLI) | payer OTHER, SELFPAY ==
--- NOTE | ~2022-11-16 | XR_ITS ---
Left Knee Technique: AP, lateral, and sunrise views were obtained. Clinical History: Pain Findings: No fracture or dislocation is seen. Osseous alignment is anatomic. There is minimal patella r spurring. Soft tissues are unremarkable. No joint effusion is seen. Impression: No fracture or dislocation. Minimal patellar spurring. Reviewed, dictated and finalized at location . Impression: No fracture or dislocation. Minimal patellar spurring.
== END 2022-11-16 08:23 | disposition home or self-care (01) ==
LOC: ANHIMG 08:36
PROVIDERS: PCP Internal Medicine; Visit Provider Internal Medicine
DX: M25.762 Osteophyte, left knee (principal); V89.2XXA Person injured in unspecified motor-vehicle accident, traffic, initial encounter
CPT/HCPCS: 73564

== ENCOUNTER 2022-12-02 06:52 | Outpatient (CLI) | payer MEDICARE, SELFPAY ==
--- NOTE | 2022-12-02 08:00 | ECHO_ITS ---
Patient Info Name: Declan Martinez Age: 72 years : 1950 Gender: Male Ht: 71 in Wt: 250 lbs BSA: 2.42 m2 HR: 64 bpm BP: 158 / 79 mmHg Heart Rhythm: Sinus Rhythm Technical Quality: Good Exam Date: 12/02/2022 8:15 AM Exam Location: [facility] Pulmonary Patient Status: Outpatient Admit Date: 12/02/2022 Staff Ordering Physician: Avtar Diop MD Private Branch Exchange Installer: María Andrews RDCS Attending Provider: Avtar Diop MD Referring Physician: Jadon QUIROZ; Exam Type: CA echo doppler color flow Study Info Indications - other chest pain Complete two-dimensional, color flow and Doppler transthoracic echocardiogram is performed. Summary 1. Complete two-dimensional, color flow and Doppler transthoracic echocardiogram is performed. 2. Left ventricular chamber dimension is normal. 3. Left ventricular systolic function is normal, estimated at 60-65%. 4. The left ventricular diastolic function is grade I diastolic dysfunction. 5. E/e' 13 is mildly elevated. 6. Left atrial chamber dimension is mildly enlarged. 7. There is mild aortic valve sclerosis. 8. There is trace tricuspid valve regurgitation. 9. No pulmonary hypertension, estimated pulmonary arterial systolic pressure is 33 mmHg. 10. There is trace pulmonic regurgitation. Left Ventricle E/e' 13 is mildly elevated. Left ventricular chamber dimension is normal. Left ventricular systolic function is normal, estimated at 60-65%. The left ventricular diastolic function is grade I diastolic dysfunction. Right Ventricle Right ventricular systolic function is normal and with normal TAPSE 3.1 cm. Right ventricular chamber dimension is normal. Left Atria Left atrial chamber dimension is mildly enlarged. Right Atria Right atrial chamber dimension is normal. Aortic Valve The aortic valve is trileaflet. There is mild aortic valve sclerosis. There is no aortic valve stenosis. There is no aortic valve regurgitation. Pulmonic Valve There is trace pulmonic regurgitation. Mitral Valve There is no mitral valve stenosis. There is no mitral valve regurgitation. Tricuspid Valve There is trace tricuspid valve regurgitation. No pulmonary hypertension, estimated pulmonary arterial systolic pressure is 33 mmHg. Pericardium/Pleural There is no pericardial effusion. Inferior Vena Cava Normal inferior vena cava with >50% collapse upon inspiration consistent with normal right atrial pressure, 5 mmHg. Aorta The aortic root size at the sinus of Valsalva is normal. Left Ventricular Outflow Tract Name Value Normal LVOT 2D LVOT Diameter 2.2 cm LVOT Doppler LVOT Peak Gradient 7 mmHg LVOT Mean Gradient 4 mmHg LVOT VTI 42 cm LVOT VTI/AV VTI Ratio 1.2 LVOT Stroke Volume 162 ml LVOT CO 9.4 l/min LVOT CI 3.9 l/min/m2 Pulmonic Valve Name Value Normal LUANN Guevara
== END 2022-12-02 06:53 | disposition home or self-care (01) ==
LOC: ANHCARD 06:56
PROVIDERS: PCP Internal Medicine; Visit Provider Internal Medicine
DX: R07.89 Other chest pain (principal); R77.8 Other specified abnormalities of plasma proteins; S26.91XA Contusion of heart, unspecified with or without hemopericardium, initial encounter; R93.1 Abnormal findings on diagnostic imaging of heart and coronary circulation; I35.8 Other nonrheumatic aortic valve disorders; I07.1 Rheumatic tricuspid insufficiency; I37.1 Nonrheumatic pulmonary valve insufficiency
CPT/HCPCS: 93306

== ENCOUNTER 2023-04-26 09:52 | Outpatient (CLI) | payer MEDICARE, SELFPAY ==
--- NOTE | ~2023-04-26 | XR_ITS ---
Clinical Indication: Cough PA and lateral views of the chest: Comparison: 03/31/2022 Findings: Questionable minimal bibasilar haziness. Cardiomediastinal silhouette is within normal ling its. Bones and soft tissues are unremarkable. Impression: Possible minimal bibasilar haziness. Correlate for minimal bibasilar pulmonary edema/atelectasis, les s likely pneumonia. Reviewed, dictated and finalized at location . Impression: Possible minimal bibasilar haziness. Correlate for minimal bibasilar pulmonary edema/atelectasis, less likely pneumonia.
== END 2023-04-26 09:53 | disposition home or self-care (01) ==
LOC: ANHIMG 09:55
PROVIDERS: PCP Internal Medicine; Visit Provider Internal Medicine
DX: R05.9 Cough, unspecified (principal)
CPT/HCPCS: 71046

== ENCOUNTER 2024-06-04 10:28 | Outpatient (CLI) | payer MEDICARE, SELFPAY ==
--- NOTE | ~2024-06-04 | CT_ITS ---
CT of the Abdomen and Pelvis: Indication: Abdominal pain Technique: 2.5 mm axial scans were obtained through the abdomen and pelvis following intravenous adm inistration of 100 cc of Omnipaque 350. Dose reduction technique was used on this scan by utilizing a utomated exposure control and iterative reconstruction technique. The dose-length product (DLP) was 1 238.14 mGy-cm. COMPARISON: 03/27/2022 Findings: Scans through the lung bases are unremarkable. Mild diffuse fatty infiltration of the liver noted. Small calcified gallstones are present. The splee n, pancreas, adrenals and kidneys are within normal limits. There are atherosclerotic calcifications of the aorta. No lymphadenopathy. No bowel obstruction or bowel wall thickening. There is no evidence to suggest acute appendicitis. Images through the pelvis were performed. Urinary bladder unremarkable. No pelvic mass seen. No ascit es. Impression: Cholelithiasis. Diffuse fatty infiltration of the liver. Reviewed, dictated and finalized at location . Impression: Cholelithiasis. Diffuse fatty infiltration of the liver.
--- NOTE | ~2024-06-04 | XR_ITS ---
AP and lateral views of the bilateral hips Clinical history: Pain Findings: No acute fracture or dislocation is seen. Osseous alignment is anatomic. Bilateral hip and SI joint spaces are preserved. Soft tissues are unremarkable. Impression: No significant abnormality is seen. Reviewed, dictated and finalized at location . Impression: No significant abnormality is seen.
[2024-06-04 11:45] LABS: Estimated Glomerular Filt Rate > 60
--- OUTSIDE RECORDS SUMMARY | 2024-06-04 12:17 | XMS_ITS | Continuity of Care Document ---
Author Organization [facility] Address [address] [place] [address] [address] [place] [address] Phone Care Team Providers Care Customs Investigator Name Role Phone Tala Garcia Unavailable Unavailable Procedures Procedure Date Eye Exam & Treatment Refraction Eye Exam & Treatment Refraction Advance Directives Directive Yes / No Effective Date File Name No Information Encounters Encounter Description Practice Location Reason(s) For Visit Diagnoses Date Provider Providers Copied on Encounter [facility], [address] [place] [address] [address], [place], [place], [id number], tel:[phone] [facility] No Information 9 Radha Edgar. [address] , [address], [place], [place], [facility], . tel:[phone] Referring Provider: [address], [place], [place], [facility]. tel:[phone] [facility], [address] [place] [address] [address], [place], [place], [id number], tel:[phone] [facility] No Information 7 Radha Guo [address] , [address], [place], [place], [facility], . tel:[phone] Family History Family Member Type Diagnosis Age At Onset No Information Payers Payer name Insurance type Covered constitution party ID Authoriza tion(s) No Information Social History Type Description Quantity Date Captured Comments Sex Male Smoking Status No Information Chief Complaint And Reason For Visit No Information Reason For Referral Reason For Referral No Information History Of Present Illness Encounter Date Complaint History Of Prese nt Illness No Information Functional Status Date Functional Assessmen t No Information Instructions Date Instruction Additional Infor mation No Information Assessments Type Assessment Date No Information Patient Care Teams Name Effective Dates (start - stop) Status Members No Information
--- OUTSIDE RECORDS SUMMARY | 2024-06-04 12:17 | XMS_ITS | Encounter Summary ---
Author Organization [facility] Address [address] [place] [id number] Care Team Providers Care Production Statistical Clerk Name Role Phone Li Sebastian [facility] Primary Care Provider + Encounter Details Date Type Department Care Team (Late st Contact Info) Description 11/05/2022 Telephone [facility] [address] [place] [address] Kasie Gardiner, [facility] [address] [place] [address] Social History Tobacco Use Types Packs/Day Years Used Date Smoking Tobacco: Never Passive Smoke Exposure: Never Smokeless Tobacco: Never Humiliation, Afraid, Rape, and Kick questionnair e Answer Date Recorded Within the last year, have y ou been afraid of your partner or ex-partner? No 11/05/2022 Within the last year, have y ou been humiliated or emotionally abused in other ways by your partner or ex-partner? No Within the last year, have y ou been kicked, hit, slapped, or otherwise physically hurt by your partner or ex-partner? No 11/05/2022 Within the last year, have y ou been raped or forced to have any kind of sexual activity by your partner or ex-partner? No 11/05/2022 Overall Financial Resource Strain (CARDIA) Answe r Date Recorded How hard is it for you to pa y for the very basics like food, housing, medical care, and heating? Not very hard 11/05/2022 Hunger Vital Sign Answer Date Recorded Within the past 12 months, y ou worried that your food would run out before you got the money to buy more. Never true 11/06/19 23 Within the past 12 months, t he food you bought just didn't last and you didn't have money to get more. Never true 11/05/2022 PRAPARE - Transportation Answer Date Re corded In the past 12 months, has l ack of transportation kept you from medical appointments or from getting medications? No 10/14 In the past 12 months, has l ack of transportation kept you from meetings, work, or from getting things needed for daily living? No 11/05/2022 Housing Stability Vital Sign Answer Sagar e Recorded In the last 12 months, was t here a time when you were not able to pay the mortgage or rent on time? No 11/05/2022 In the last 12 months, how many places have you lived? 1 11/05/2022 In the last 12 months, was t here a time when you did not have a steady place to sleep or slept in a [facility] (including now)? No 11/05/2022 Sex and Gender Information Value Date Recorded Sex Assigned at Not on file Legal Sex Male 9:19 PM CDT Gender Identity Not on file Sexual Orientation Not on file documented as of this encounter Functional Status * Question Answer Date of Assessment Author Status Do you have serious difficulty walking or climbing stairs? No 11/05/2022 1:03 AM Jake Vitale RN Acti ve * Question Answer Date of Assessment Author Status Do you have difficulty dressing or bathing? No 11/05/2022 1:03 AM Jake Vitale RN Active Because of a physical, mental, or emotional condition, do you have difficulty doing errands alone such as visiting a doctor's office or shopping? No 11/05/2022 1:03 AM Mylene Vitale RN Active * Are you deaf or do you have serious difficulty hearing Answer Date of Assessment Author Status No 11/05/2022 1:03 AM Jake Vitale R N Active * Are you blind or do you have serious difficulty seeing, even when wearing glasses? Answer Date of Assessment Author Status No 11/05/2022 1:03 AM Jake Vitale R N Active * Do you have serious difficulty walking or climbing stairs? Answer Date of Assessment Author Status No 11/05/2022 1:03 AM Jake Vitale R N Active * Do you have difficulty dressing or bathing? Answer Date of Assessment Author Status No 11/05/2022 1:03 AM Jake Vitale R N Active * Because of a physical, mental, or emotional condition, do you have difficulty doing errands alone such as visiting a doctor's office or shopping? Answer Date of Assessment Author Status No 11/05/2022 1:03 AM Jake Vitale R N Active * Question Answer Date of Assessment Author Status Are you deaf or do you have serious difficulty hearing No 11/05/2022 1:03 AM Herman Vitale RN Active Are you blind or do you have serious difficulty seeing, even when wearing glasses? No 11/05/2022 1:03 AM Herman Vitale RN Active * Calculated C-SSRS Risk Score (Lifetime/Recent) Answer Date of Assessment Author Status No Risk Indicated 11/05/2022 1:00 AM Nini Vitale RN Active * [place] Suicide Severity Rating Scale (Screener/Recent Self-Report) Question Answer Date of Assessment Author Status 1. Wish to be (Past 1 Month) No 11/05/2022 1:00 AM Jake Vitale RN Activ e 2. Non-Specific Active Suicidal Thoughts (Past 1 Month) No 11/05/2022 1:00 AM Jake Vitale RN Activ e 6. Suicidal Behavior (Lifetime) No 11/05/2022 1:00 AM Jake Vitale RN Activ e documented as of this encounter Mental Status * Question Answer Entry Date Author Status Because of a physical, mental, or emotional condition, do you have serious difficulty concentrating, remembering, or making decisions? No 11/05/2022 1:03 AM Jake Vitale RN Active * Because of a physical, mental, or emotional condition, do you have serious difficulty concentrating, remembering, or making decisions? Answer Entry Date Author Status No 11/05/2022 1:03 AM Jake Vitale R N Active documented in this encounter Progress Notes * ADAM Brunner - 11/05/2022 11:08 PM CDT Will need to verify PCP. I have never seen this patient. * ADAM Alvarez - 11/05/2022 4:05 PM CDT Seen over the [facility], will need fu and outpatient stress test in [place] documented in this encounter Plan of Treatment Not on file documented as of this encounter Visit Diagnoses Not on filedocumented in this encounter Care Teams Production Statistical Clerk Relationship Specialty Start Date End Date Li Sebastian FNP-BC PCP - General Nurse Practitioner Family 05/13/212 04/07 documented as of this encounter
--- OUTSIDE RECORDS SUMMARY | 2024-06-04 12:17 | XMS_ITS | Encounter Summary ---
Author Organization [facility] Address [facility] [place] [address] Care Team Providers Care Is Project Manager Name Role Phone Li Sebastian [facility] Primary Care Provider + Encounter Details Date Type Department Care Team (Late st Contact Info) Description 11/07/2022 Hospital Follow-up Call [facility] [address] [place] [address] Gwen Dunn RN Social History Tobacco Use Types Packs/Day Years [...] place to sleep or slept in a senior care (including now)? No 11/05/2022 Sex and Gender Information Value Date Recorded Sex Assigned at Not on file Legal Sex Male 9:19 PM CDT Gender Identity Not on file Sexual Orientation Not on file documented as of this encounter Functional Status * Are you deaf or do you have serious difficulty hearing Answer Date of Assessment Author Status No 11/05/2022 1:03 AM CDT Jake Lim R N Active * Are you blind or do you have serious difficulty seeing, even when wearing glasses? Answer Date of Assessment Author Status No 11/05/2022 1:03 AM CDT Jake Lim R N Active * Do you have serious difficulty walking or climbing stairs? Answer Date of Assessment Author Status No 11/05/2022 1:03 AM CDT Jake Lim R N Active * Do you have difficulty dressing or bathing? Answer Date of Assessment Author Status No 11/05/2022 1:03 AM CDT Jake Lim R N Active * Because of a physical, mental, or emotional condition, do you have difficulty doing errands alone such as visiting a doctor's office or shopping? Answer Date of Assessment Author Status No 11/05/2022 1:03 AM CDT Jake Lim R N Active documented as of this encounter Mental Status * Because of a physical, mental, or emotional condition, do you have serious difficulty concentrating, remembering, or making decisions? Answer Entry Date Author Status No 11/05/2022 1:03 AM CDT Jake Lim R N Active documented in this encounter Plan of Treatment Not on file documented as of this encounter Visit Diagnoses Not on filedocumented in this encounter Care Teams Is Project Manager Relationship Specialty Start Date End Date Li Sebastian FNP- PCP - General Nurse Practitioner Family 05/13/2103/16 documented as of this encounter
--- OUTSIDE RECORDS SUMMARY | 2024-06-04 12:17 | XMS_ITS | CONTINUITY OF CARE DOCUMENT ---
Author Name jay thompson Address Unknown Organization [facility] Address [id number] [place] [address] [address] [place] [address] Phone [phone] Care Team Providers Care Mixing Machine Tender Cork Gasket Name Role Phone jay thompson Unavailable Unavailable INSURANCE PROVIDERS Payer name Policy type / Coverage type [place] red democrat ID [employer] [facility] [id number]
--- OUTSIDE RECORDS SUMMARY | 2024-06-04 12:17 | XMS_ITS | Clinical Summary ---
Author Organization [facility] Address [address] [place] [address] Care Team Providers Care Sales And Operations Trainee Name Role Phone Avtar Diop MD Primary Care Provider [phone] Source Comments [facility],non-[facility] Affiliates and Associated Physician Practices is amultiple site organization consisting of ambulatory clinics and hospital sitesin [place], [place], [place] and [place]. This disclosure is being madepursuant to the Care Everywhere program and may not contain all information available regarding this patient. 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 Height 180.3 cm (5' 11 ) 11/19/2012 10:02 AM CDT Body Mass Index 29.99 11/19/2012 10:02 AM CDT Plan of Treatment Health Maintenance Due Date Last Done Comments HEPATITIS C SCREENING 05/12/1966 DTAP/TDAP/TD VACCINES (1 - Tdap) 05/17/1967 PNEUMOCOCCAL VACCINE 50+ (1 of 1 - PCV) 1998 ZOSTER VACCINE (1 of 2) 1998 Respiratory Syncytial Virus (RSV) Vaccine Pt: or over 60 yrs (1 - 1-dose 75+ series) 05/17/2023 COVID-19 VACCINE (2023-2 5 season) 2023 DEPRESSION SCREENING 02/13/2024 INFLUENZA VACCINE (Season Ended) 2024 HEPATITIS B VACCINE Aged Out No longe r eligible based on patient's age to complete this topic HIB VACCINE Aged Out No longer eligi ble based on patient's age to complete this topic HPV VACCINE Aged Out No longer eligi ble based on patient's age to complete this topic MENINGOCOCCAL (Group B) VACC INE SHARED DECISION-MAKING Aged Out No longer eligibl e based on patient's age to complete this topic MENINGOCOCCAL GROUPS A/C/Y/W VACCINE Aged Out No longer eligible b ased on patient's age to complete this topic Insurance [employer] MANAGED MEDICARE [facility] Care Teams Sales And Operations Trainee Relationship Specialty Start Date End Date Avtar Diop MD [address] [place] [address] PCP - General Internal Medicine 11/18/12
--- OUTSIDE RECORDS SUMMARY | 2024-06-04 12:17 | XMS_ITS | Clinical Summary ---
Author Organization [facility] Address [address] [place] [address] Care Team Providers Care [place] Police Lieutenant Name Role Phone Unavailable Primary Care Provider Unavailabl e Allergies Active Allergy Reactions Criticality Noted Date Comments Statins Anaphylaxis High 11/04/2022 Medications traZODone (DESYREL) 100 MG tablet Take 1 tablet (100 mg total) by mouth nightly at bedtime. Active amLODIPine (NORVASC) 5 MG tablet Take 1 tablet (5 mg total) by mouth daily. Active gabapentin (NEURONTIN) 600 MG tablet Take 1 tablet (600 mg total) by mouth 3 (three) times daily. Active metFORMIN (GLUCOPHAGE) 1000 MG tablet Take 1 tablet (1,000 mg total) by mouth 2 (two) times daily with meals. Active losartan 50 MG TABS 100 mg, hydroCHLOROthiazide 12.5 MG CAPS 12.5 mg Take by mouth daily. Active carvedilol (COREG) 25 MG tablet Take 1 tablet (25 mg total) by mouth 2 (two) times daily. Active ezetimibe (ZETIA) 10 MG tablet Take 1 tablet (10 mg total) by mouth daily. Active aspirin 81 MG chewable tablet Chew 1 tablet (81 mg total) by mouth daily. Active vitamin D3 (CHOLECALCIFEROL) 25 mcg tablet Take 1 tablet (25 mcg total) by mouth daily. Active Magnesium Oxide 420 MG Tab Active Probiotic Product (TRUBIOTICS OR) Acti ve Glucosamine-Chondroitin (MOVE FREE OR) Activ e [employer] GUMMIES OR Active [place]-3 Fatty Acids (FISH OIL) 1360 MG Cap Take by mouth 3 (three) times daily. Active ibuprofen (MOTRIN) 600 MG tablet Take 1 tablet (600 mg total) by mouth every 6 (six) hours as needed. 08/09/19 Active losartan-hydroCHLOROthi azide (HYZAAR) 100-12.5 MG tablet Take 1 tablet by mouth daily. 11/02/19 Active clonazePAM (KLONOPIN) 1 MG tablet Take 1 tablet (1 mg total) by mouth nightly as needed. 08/09/19 Active Active Problems Problem Noted Date Diagnosed Date Elevated troponin 11/05/2022 Social History Tobacco Use Types Packs/Day Years Used Date Smoking Tobacco: Never Passive Smoke Exposure: Never Smokeless Tobacco: Never Tobacco Cessation:Counseling Given: Not Answered Humiliation, Afraid, Rape, and Kick questionnair e [...] money to buy more. Never true 11/06/19 Within the past 12 months, t he [...] place to sleep or slept in a alf (including now)? No 11/05/2022 Sex and Gender Information Value Date Recorded Sex Assigned at Not on file Legal Sex Male 9:19 PM CDT Gender Identity Not on file Sexual Orientation Not on file Last Filed Vital Signs Vital Sign Reading Time Taken Comments Blood Pressure 169/83 11/05/2022 12:32 PM CDT Pulse 81 11/05/2022 12:32 PM CDT Temperature 36.6 C (97.8 F) 11/05/2022 1:00 AM CDT Respiratory Rate 16 11/05/2022 12:3 2 PM CDT Oxygen Saturation 90% 11/05/2022 12: 32 PM CDT Inhaled Oxygen Concentration - - Weight 112.9 kg (248 lb 14.4 oz) 11/05/2022 6:00 AM CDT Height 180.3 cm (5' 11 ) 11/05/2022 12: 36 AM CDT Body Mass Index 34.71 11/05/2022 12:36 AM CDT Plan of Treatment Health Maintenance Due Date Last Done Comments Hepatitis C 1968 Pneumococcal Vaccine: 50+ Ye ars (1 of 1 - PCV) 1998 Zoster Vaccines (2 of 3) 02/18/2012 12/24/2011 Annual Medicare Wellness Visit 2013 RSV Immunization or 60+ Years (1 - 1-dose 75+ series) 05/17/2023 COVID-19 Vaccine (1 - 2023-2 5 season) 2023 DTaP, Tdap and Td Vaccines ( 2 - Td or Tdap) 09/15/2027 09/14/2017 Meningococcal B Vaccine Aged Out No l onger eligible based on patient's age to complete this topic Meningococcal Vaccine Aged Out No mendez gavin eligible based on patient's age to complete this topic RSV Immunizations Under 20 Months Aged Out No longer eligible based on patient's age to complete this topic Insurance [facility] Advance Directives * Full Code (Latest Code Status on File) Date Activated Date Inactivated Comments 11/05/2022 12:39 AM 11/05/2022 5:17 PM
== END 2024-06-04 10:29 | disposition home or self-care (01) ==
PROVIDERS: PCP Internal Medicine; Visit Provider Internal Medicine
DX: K80.20 Calculus of gallbladder without cholecystitis without obstruction (principal); K76.0 Fatty (change of) liver, not elsewhere classified; M25.551 Pain in right hip; M25.552 Pain in left hip; K57.90 Diverticulosis of intestine, part unspecified, without perforation or abscess without bleeding
CPT/HCPCS: 73521; 74177; Q9967